=== PATIENT | female | born 1980 | race Hispanic/Latino ===

== ENCOUNTER 2017-02-22 11:28 | Emergency (ER) | payer OTHER, MEDICAID ==
[2017-02-22] MEDS ORDERED: ONDANSETRON HCL 4 MG/2 ML VIAL ONE (12:04)
[2017-02-22] MEDS ORDERED: SODIUM CHLORIDE 0.9% 1000ML 1,000 ML IV ONE (12:04)
[2017-02-22] MEDS ORDERED: ACETAMINOPHEN EXTRA STRENGTH 500 MG TABLET ONE (12:05)
[2017-02-22 12:12] LABS: BASOPHILS % (AUTO) 0.3 % (0.0-5.0); EOSINOPHILS % (AUTO) 1.6 % (0.0-8.0); HEMATOCRIT 34.8 % (36-48); MEAN CORPUSCULAR HEMOGLOBIN 30.8 pg (27.0-33.0); MEAN CORPUSCULAR HGB CONC 33.2 g/dL (32.0-36.0); MEAN CORPUSCULAR VOLUME 92.8 fL (79-99); MONOCYTES % (AUTO) 6.3 % (3.0-13.0); NEUTROPHILS % (AUTO) 82.9 % (40.0-77.0); PLATELET COUNT (AUTO) 228 K/uL (130-400); RED BLOOD CELL COUNT(AUTO) 3.75 MIL/uL (4.00-5.50); RED CELL DISTRIBUTION WIDTH 14.2 % (11.0-15.5); WHITE BLOOD COUNT (AUTO) 10.4 K/uL (4.8-10.8)
[2017-02-22 12:17] LABS: LYMPHOCYTES % (AUTO) 8.9 % (21.0-51.0)
[2017-02-22 12:20] LABS: CREATININE 0.6 mg/dL (0.5-1.5); POTASSIUM 3.5 mmol/L (3.5-5.1)
[2017-02-22 12:26] LABS: ALBUMIN 2.8 g/dL (3.5-5.0); BILIRUBIN,TOTAL 0.4 mg/dL (0.2-1.0); TOTAL PROTEIN, SERUM 7.1 g/dL (6.0-8.3)
[2017-03-10] MEDS ORDERED: LABE200T PO (03:22)
[2017-03-10] MEDS ORDERED: [UNRECOGNIZED DRUG - CODE] PO (03:22)
[2017-03-14] MEDS ORDERED: LABE300T PO (12:01)
[2017-03-14] MEDS ORDERED: [UNRECOGNIZED DRUG - CODE] PO (12:01)
[2017-03-14] MEDS ORDERED: PREN1COM14 PO (12:01)
== END 2017-02-22 14:25 | disposition home or self-care (01) ==
LOC: EDH 11:28
DX: O26.892 Other specified pregnancy related conditions, second trimester (principal); R10.84 Generalized abdominal pain; I10 Essential (primary) hypertension; Z3A.19 19 weeks gestation of pregnancy
CPT/HCPCS: 36415; 76705; 76801; 80053; 82150; 83690; 85025; 96361; 96374; 99285; J2405; J7030; 76802

== ENCOUNTER 2017-04-03 16:16 | Observation (INO) | payer OTHER, MEDICAID ==
[~2017-04-03] VITALS: Ht 147.3 cm; Wt 75.7 kg
[~2017-04-03 16:16] MED LIST: LABE300T PO; PREN1COM14 PO
[2017-04-03 16:48] VITALS: BP 129/78
[2017-04-03] MEDS: DEXAMETHASONE SOD PHOSPHATE 4 MG/ML 1ML VIAL IM SCH ×2 (17:47→22:19)
[2017-04-03 19:10] VITALS: BP 111/61
[2017-04-03] MEDS ORDERED: AMLO5TAB2 PO (21:53)
[2017-04-03] MEDS ORDERED: [UNRECOGNIZED DRUG - CODE] PO (21:54)
[2017-04-03] MEDS ORDERED: METHY500 PO (22:13)
[2017-04-03] MEDS ORDERED: LABE200T PO (22:13)
[2017-04-03] MEDS ORDERED: ACETAMINOPHEN EXTRA STRENGTH 500 MG TABLET PO PRN (22:45)
[2017-04-03 23:10] VITALS: BP 155/88
[2017-04-04 03:23] VITALS: BP 139/75
[2017-04-04] MEDS: DEXAMETHASONE SOD PHOSPHATE 4 MG/ML 1ML VIAL IM SCH ×2 (04:32→10:46)
[2017-04-04 07:38] VITALS: BP 138/79
[2017-04-04] MEDS ORDERED: LABETALOL HCL 300 MG PO SCH (09:00)
[2017-04-04] MEDS ORDERED: AMLODIPINE BESYLATE 5 MG TAB PO SCH ×2 (09:00)
[2017-04-04] MEDS ORDERED: LABETALOL HCL 200 MG TABLET PO SCH (09:00)
== END 2017-04-04 11:30 | disposition home or self-care (01) ==
LOC: WSH 16:30
DX: O60.00 Preterm labor without delivery, unspecified trimester (principal); Z3A.00 Weeks of gestation of pregnancy not specified
CPT/HCPCS: 96372 ×2; G0378 ×20; J1100 ×4

== ENCOUNTER 2017-04-27 02:06 | Observation (INO) | payer OTHER, MEDICAID ==
[~2017-04-27] VITALS: Ht 149.9 cm; Wt 78.9 kg
[~2017-04-27 02:06] MED LIST changes: +AMLO5TAB2 PO; +LABE200T PO; +METHY500 PO; +[UNRECOGNIZED DRUG - CODE] PO
[2017-04-27 02:52] LABS: APPEARANCE,URINE Clear (CLEAR); BILIRUBIN,URINE Negative (NEGATIVE); COLOR,URINE Yellow (YELLOW); GLUCOSE, URINE (UA) Negative (NEGATIVE); KETONES,URINE Negative (NEGATIVE); LEUKOCYTE ESTERASE ,URINE Moderate (NEGATIVE); NITRATE,URINE Negative (NEGATIVE); OCCULT BLOOD,URINE Negative (NEGATIVE); PH,URINE 6.5 (5.0-8.0); PROTEIN,URINE Negative (NEGATIVE)
[2017-04-27 02:58] LABS: BACTERIA,URINE Rare /HPF (None Seen); MUCUS,URINE Moderate LPF (None Seen); RBC,URINE None Seen /HPF (0-1); SQUAMOUS EPITHELIAL CELL,UR Moderate /LPF (0-2)
[2017-04-27] MEDS ORDERED: MAG HYDROX/AL HYDROX/SIMETH ES 30 ML SUSP UDCUP PO SCH (03:45)
== END 2017-04-27 04:35 | disposition home or self-care (01) ==
LOC: EDH 02:06 → LDH 02:10
PROVIDERS: ADMIT Specialist; ATTEND Specialist
DX: O26.892 Other specified pregnancy related conditions, second trimester (principal); R10.10 Upper abdominal pain, unspecified; Z3A.27 27 weeks gestation of pregnancy
CPT/HCPCS: 81001; 99285; G0378 ×2

== ENCOUNTER 2017-05-25 07:51 | Observation (INO) | payer OTHER, MEDICAID ==
[2017-05-25] MEDS: AMPICILLIN 2GM+NS 100ML 100 ML IV SCH ×3 (05:15→23:15)
[2017-05-25 08:23] LABS: BILIRUBIN,URINE Negative (NEGATIVE); COLOR,URINE Yellow (YELLOW); GLUCOSE, URINE (UA) Negative (NEGATIVE); KETONES,URINE Negative (NEGATIVE); LEUKOCYTE ESTERASE ,URINE Large (NEGATIVE); NITRATE,URINE Negative (NEGATIVE); OCCULT BLOOD,URINE Small (NEGATIVE); PROTEIN,URINE POS 1+ (NEGATIVE)
[2017-05-25 08:34] LABS: APPEARANCE,URINE SLIGHTLY CLOUDY (CLEAR)
[2017-05-25 08:52] LABS: BACTERIA,URINE Moderate /HPF (None Seen); MUCUS,URINE Moderate LPF (None Seen); WBC,URINE 51-100 /HPF (0-1)
[2017-05-25] MEDS ORDERED: ACETAMINOPHEN EXTRA STRENGTH 500 MG TABLET PO SCH (09:00)
[2017-05-25] MEDS ORDERED: LACTATED RINGERS 1000ML 1,000 ML IV SCH (09:00)
[2017-05-25] MEDS ORDERED: LACTATED RINGERS 1000ML IV SCH (09:00)
[2017-05-25 09:06] LABS: HEMATOCRIT 37.4 % (36-48); MEAN CORPUSCULAR HEMOGLOBIN 30.2 pg (27.0-33.0); MEAN CORPUSCULAR HGB CONC 33.7 g/dL (32.0-36.0); MEAN CORPUSCULAR VOLUME 89.7 fL (79-99); PLATELET COUNT (AUTO) 244 K/uL (130-400); RED BLOOD CELL COUNT(AUTO) 4.17 MIL/uL (4.00-5.50); RED CELL DISTRIBUTION WIDTH 14.7 % (11.0-15.5); WHITE BLOOD COUNT (AUTO) 19.2 K/uL (4.8-10.8)
[2017-05-25 09:27] LABS: BAND NEUTROPHILS % (MANUAL) 4 % (0-2); LYMPHOCYTES % (MANUAL) 5 % (22-44); MAN.DIFF COMMENT-IMPRESSION MANUAL DIFFERENTIAL; MONOCYTES % (MANUAL) 5 % (2-9); SEGMENTED NEUTROPHILS % 86 % (40-70)
[2017-05-25 09:28] LABS: PLATELET MORPHOLOGY COMMENT ADEQUATE
[2017-05-25] MEDS ORDERED: PHARMACY COMMUNICATION MISC SCH (11:15)
[2017-05-25] MEDS: LACTATED RINGERS 1000ML 1,000 ML IV SCH ×2 (11:30→20:23)
[2017-05-25] MEDS ORDERED: GENTAMICIN SULFATE 240 MG in SODIUM CHLORIDE 0.9% 100 ML IV SCH (13:00)
[2017-05-25] MEDS: GENTAMICIN SULFATE 120 MG in SODIUM CHLORIDE 0.9% 100 ML IV SCH ×2 (13:03→21:03)
[2017-05-25] MEDS ORDERED: ACETAMINOPHEN 325 MG TAB PO PRN (14:00)
[2017-05-25] MEDS: ACETAMINOPHEN EXTRA STRENGTH 500 MG TABLET PO PRN (19:41)
[2017-05-25] MEDS ORDERED: GENTAMICIN 80 MG/NS 100 ML PB 100 ML IV SCH (21:00)
[2017-05-25] MEDS ORDERED: LABETALOL HCL 100 MG TABLET PO SCH (21:00)
[2017-05-25] MEDS ORDERED: LACTATED RINGERS 1000ML 1,000 ML IV ONE (23:23)
[2017-05-26] MEDS: ACETAMINOPHEN EXTRA STRENGTH 500 MG TABLET PO PRN (06:28)
[2017-05-26] MEDS ORDERED: AMLODIPINE BESYLATE 5 MG TAB PO SCH (07:00)
== END 2017-05-26 09:35 | disposition home or self-care (01) ==
LOC: EDH 07:51 → LDH 08:02
DX: O26.893 Other specified pregnancy related conditions, third trimester (principal); R10.30 Lower abdominal pain, unspecified; O10.913 Unspecified pre-existing hypertension complicating pregnancy, third trimester; Z3A.31 31 weeks gestation of pregnancy
CPT/HCPCS: 36415; 81001; 82948 ×2; 85025; 87088; 87186; 87804 ×2; 96361 ×2; 96365; 96368; 96375; 96376; 99285; G0378 ×26; J0290 ×4; J1580 ×2; J7120 ×2; 96360

== ENCOUNTER 2017-06-25 11:36 | Inpatient (IN) | payer MEDICAID, OTHER ==
[~2017-06-25] VITALS: Ht 149.9 cm; Wt 79.4 kg
[~2017-06-25 11:36] MED LIST changes: -LABE200T PO; +LABE200T5 PO; -LABE300T PO; +LABE300T2 PO; +METH500T22 PO; -[UNRECOGNIZED DRUG - CODE] PO
[2017-06-25 13:15] LABS: BASOPHILS % (AUTO) 0.2 % (0.0-5.0); EOSINOPHILS % (AUTO) 0.3 % (0.0-8.0); HEMATOCRIT 36.1 % (36-48); LYMPHOCYTES % (AUTO) 11.6 % (21.0-51.0); MEAN CORPUSCULAR HEMOGLOBIN 29.9 pg (27.0-33.0); MEAN CORPUSCULAR HGB CONC 33.9 g/dL (32.0-36.0); MEAN CORPUSCULAR VOLUME 88.3 fL (79-99); MONOCYTES % (AUTO) 6.6 % (3.0-13.0); NEUTROPHILS % (AUTO) 81.3 % (40.0-77.0); NUCLEATED RED BLOOD CELLS 0.2 % (0.0-0.19); PLATELET COUNT (AUTO) 186 K/uL (130-400); RED BLOOD CELL COUNT(AUTO) 4.09 MIL/uL (4.00-5.50); RED CELL DISTRIBUTION WIDTH 15.2 % (11.0-15.5); WHITE BLOOD COUNT (AUTO) 9.7 K/uL (4.8-10.8)
[2017-06-25 13:17] LABS: APPEARANCE,URINE Cloudy (CLEAR); BILIRUBIN,URINE Negative (NEGATIVE); COLOR,URINE Yellow (YELLOW); GLUCOSE, URINE (UA) Negative (NEGATIVE); KETONES,URINE Trace mg/dL (NEGATIVE); LEUKOCYTE ESTERASE ,URINE Moderate (NEGATIVE); NITRATE,URINE Negative (NEGATIVE); OCCULT BLOOD,URINE Negative (NEGATIVE); PH,URINE 5.5 (5.0-8.0); PROTEIN,URINE POS 1+ (NEGATIVE)
[2017-06-25 13:29] LABS: BACTERIA,URINE Rare /HPF (None Seen); RBC,URINE 0-1 /HPF (0-1); SQUAMOUS EPITHELIAL CELL,UR Rare /HPF (0-2); WBC,URINE 0-1 /HPF (0-1)
[2017-06-25 13:37] LABS: CREATININE 0.7 mg/dL (0.5-1.5)
[2017-06-25 13:41] LABS: ALBUMIN 2.5 g/dL (3.5-5.0); BILIRUBIN,TOTAL 0.3 mg/dL (0.2-1.0); TOTAL PROTEIN, SERUM 6.8 g/dL (6.0-8.3); URIC ACID 6.5 mg/dL (2.6-7.2)
[2017-06-25 13:59] LABS: INR 0.84 (0.85-1.15); PARTIAL THROMBOPLASTIN TIME 25.5 SEC (26.3-35.5); PROTHROMBIN TIME 8.7 SEC (9.6-11.6)
[2017-06-25] MEDS ORDERED: LACTATED RINGERS 1000ML 1,000 ML IV SCH (14:00)
[2017-06-25 14:24] LABS: HEMATOCRIT 36.5 % (36-48); MEAN CORPUSCULAR HEMOGLOBIN 29.8 pg (27.0-33.0); MEAN CORPUSCULAR HGB CONC 34.1 g/dL (32.0-36.0); MEAN CORPUSCULAR VOLUME 87.4 fL (79-99); NUCLEATED RED BLOOD CELLS 0.1 % (0.0-0.19); PLATELET COUNT (AUTO) 155 K/uL (130-400); RED BLOOD CELL COUNT(AUTO) 4.18 MIL/uL (4.00-5.50); RED CELL DISTRIBUTION WIDTH 15.6 % (11.0-15.5); WHITE BLOOD COUNT (AUTO) 11.3 K/uL (4.8-10.8)
[2017-06-25] MEDS: LABETALOL HCL 100 MG TABLET PO SCH ×2 (15:46→20:58)
[2017-06-25] MEDS ORDERED: ACETAMINOPHEN 325 MG TAB ONE (17:05)
[2017-06-25] MEDS ORDERED: ACETAMINOPHEN 325 MG TAB PO PRN (17:15)
[2017-06-26] VITALS (26 sets, daily range): BP systolic 114–170; BP diastolic 65–106
[2017-06-26] MEDS ORDERED: CEFAZOLIN SODIUM 1 GM VIAL IVP PRN ×2 (07:00→07:30)
[2017-06-26] MEDS ORDERED: CALDOLOR 800MG+NS 250ML 250 ML IV PRN (07:00)
[2017-06-26 08:19] LABS: HEPATITIS Bs ANTIGEN SCREEN P Negative (Negative)
[2017-06-26] MEDS ORDERED: ONDANSETRON HCL MDV 20ML 2 MG/ML VIAL ONE (08:44)
[2017-06-26] MEDS ORDERED: DURAMORPH PF1 MG/ML 10ML AMP IV ONE (08:52)
[2017-06-26] MEDS ORDERED: OXYTOCIN 10 USP UNITS/ML ONE ×2 (08:53→12:02)
[2017-06-26] MEDS: LABETALOL HCL 100 MG TABLET PO SCH ×5 (09:00→20:37)
[2017-06-26] MEDS ORDERED: MIDAZOLAM HCL 1 MG/ML 2ML VIAL ONE (09:33)
[2017-06-26] MEDS ORDERED: OXYTOCIN-LR 20 UNITS/1000 ML 1,000 ML IV PRN (10:51)
[2017-06-26] MEDS ORDERED: DIPHENHYDRAMINE HCL 25 MG CAPSULE PO PRN (11:00)
[2017-06-26] MEDS ORDERED: DEXTROSE 5 %-0.45 % NACL 1,000 ML IV PRN (11:00)
[2017-06-26] MEDS ORDERED: SODIUM CHLORIDE 0.9% 10 ML VIAL IVP PRN (11:00)
[2017-06-26] MEDS: MEASLES/MUMPS/RUBELLA VACCINE, LIVE 0.5 ML/VIAL SQ SCH (11:00)
[2017-06-26] MEDS: ACETAMINOPHEN-CODEINE 300/30MG TAB PO PRN ×2 (12:18→18:28)
[2017-06-26 12:22] LABS: HEMATOCRIT 33.9 % (36-48)
[2017-06-26] MEDS ORDERED: MEPERIDINE-PF 25 MG/ML SYG ONE (12:39)
[2017-06-26] MEDS: CALDOLOR 800MG+NS 250ML 250 ML IV SCH (12:56)
[2017-06-26 16:21] LABS: HEMATOCRIT 29.5 % (36-48)
[2017-06-26 16:44] LABS: INR 0.88 (0.85-1.15); PARTIAL THROMBOPLASTIN TIME 27.5 SEC (26.3-35.5); PROTHROMBIN TIME 9.1 SEC (9.6-11.6)
[2017-06-26] MEDS ORDERED: CEFAZOLIN 2GM / 50 ML 50 ML IV SCH (18:00)
[2017-06-26] MEDS: CEFAZOLIN SODIUM 1 GM VIAL IVP SCH (18:28)
[2017-06-26 20:37] LABS: HEMATOCRIT 30.6 % (36-48)
[2017-06-26] MEDS: DOCUSATE SODIUM 100 MG CAP PO SCH (20:37)
[2017-06-26] MEDS: SIMETHICONE 80 MG TAB.CHEW PO PRN (22:50)
[2017-06-26] MEDS ORDERED: LABETALOL HCL 5 MG/ML 20ML VIAL IV ONE (23:08)
[2017-06-26] MEDS: LABETALOL 20 MG/4 ML DISP.SYRIN IV PRN (23:10)
[2017-06-27] VITALS (21 sets, daily range): BP systolic 105–179; BP diastolic 59–115
[2017-06-27] MEDS: CEFAZOLIN SODIUM 1 GM VIAL IVP SCH (02:11)
[2017-06-27] MEDS: CALDOLOR 800MG+NS 250ML 250 ML IV SCH (02:44)
[2017-06-27 03:48] LABS: MEAN CORPUSCULAR HEMOGLOBIN 29.7 pg (27.0-33.0); MEAN CORPUSCULAR VOLUME 87.4 fL (79-99); PLATELET COUNT (AUTO) 133 K/uL (130-400); RED BLOOD CELL COUNT(AUTO) 3.32 MIL/uL (4.00-5.50); RED CELL DISTRIBUTION WIDTH 15.8 % (11.0-15.5); WHITE BLOOD COUNT (AUTO) 14.3 K/uL (4.8-10.8)
[2017-06-27 03:53] LABS: CREATININE 0.6 mg/dL (0.5-1.5); POTASSIUM 3.5 mmol/L (3.5-5.1)
[2017-06-27] MEDS: LABETALOL 20 MG/4 ML DISP.SYRIN IV PRN (05:07)
[2017-06-27] MEDS ORDERED: HYDRALAZINE HCL 20 MG/ML VIAL IV PRN (07:30)
[2017-06-27] MEDS: DOCUSATE SODIUM 100 MG CAP PO SCH ×2 (08:00→21:24)
[2017-06-27] MEDS: AMLODIPINE BESYLATE 5 MG TAB PO SCH (08:01)
[2017-06-27] MEDS ORDERED: AMLODIPINE BESYLATE 5 MG TAB PO SCH (09:00)
[2017-06-27] MEDS ORDERED: ONDANSETRON HCL MDV 20ML 2 MG/ML VIAL ONE (09:17)
[2017-06-27] MEDS: LIDOCAINE 5% TOPICAL PATCH TP SCH (09:19)
[2017-06-27] MEDS: PRENATAL VITAMIN RX TABLET PO SCH (09:19)
[2017-06-27] MEDS: LABETALOL HCL 100 MG TABLET PO SCH ×3 (09:19→16:30)
[2017-06-27] MEDS ORDERED: ONDANSETRON HCL MDV 20ML 2 MG/ML VIAL IVP PRN (09:30)
[2017-06-27] MEDS: SIMETHICONE 80 MG TAB.CHEW PO PRN ×2 (10:07→19:11)
[2017-06-27] MEDS: BISACODYL 10 MG SUPP.RECT RC PRN (10:45)
[2017-06-27] MEDS: IBUPROFEN 800 MG TAB PO SCH ×2 (10:46→19:12)
[2017-06-27] MEDS: HYDRALAZINE HCL 25 MG TABLET PO SCH (16:30)
[2017-06-27] MEDS: ACETAMINOPHEN-CODEINE 300/30MG TAB PO PRN ×2 (16:50→21:28)
[2017-06-27] MEDS: DIPH,PERTUSS(ACELL),TET VAC/PF 0.5 ML VIAL IM SCH (19:12)
[2017-06-27 20:22] LABS: HEMATOCRIT 26.8 % (36-48); MEAN CORPUSCULAR HEMOGLOBIN 29.3 pg (27.0-33.0); MEAN CORPUSCULAR HGB CONC 33.4 g/dL (32.0-36.0); MEAN CORPUSCULAR VOLUME 87.7 fL (79-99); PLATELET COUNT (AUTO) 143 K/uL (130-400); RED BLOOD CELL COUNT(AUTO) 3.05 MIL/uL (4.00-5.50); RED CELL DISTRIBUTION WIDTH 15.6 % (11.0-15.5); WHITE BLOOD COUNT (AUTO) 16.4 K/uL (4.8-10.8)
[2017-06-27 20:47] LABS: INR 0.85 (0.85-1.15); PARTIAL THROMBOPLASTIN TIME 31.7 SEC (26.3-35.5)
[2017-06-28] VITALS (8 sets, daily range): BP systolic 124–167; BP diastolic 71–93
[2017-06-28] MEDS: LABETALOL HCL 100 MG TABLET PO SCH ×4 (00:13→21:45)
[2017-06-28] MEDS: SIMETHICONE 80 MG TAB.CHEW PO PRN ×2 (00:13→21:46)
[2017-06-28] MEDS: HYDRALAZINE HCL 25 MG TABLET PO SCH (02:58)
[2017-06-28] MEDS: IBUPROFEN 800 MG TAB PO SCH ×3 (02:59→18:59)
[2017-06-28 04:24] LABS: HEMATOCRIT 25.2 % (36-48); MEAN CORPUSCULAR HGB CONC 35.4 g/dL (32.0-36.0); MEAN CORPUSCULAR VOLUME 87.8 fL (79-99); PLATELET COUNT (AUTO) 148 K/uL (130-400); RED BLOOD CELL COUNT(AUTO) 2.87 MIL/uL (4.00-5.50); RED CELL DISTRIBUTION WIDTH 16.1 % (11.0-15.5); WHITE BLOOD COUNT (AUTO) 14.6 K/uL (4.8-10.8)
[2017-06-28 04:30] LABS: CREATININE 0.6 mg/dL (0.5-1.5); POTASSIUM 3.3 mmol/L (3.5-5.1)
[2017-06-28] MEDS ORDERED: LIDOCAINE HCL-MPF 1% 2ML VIAL IVP PRN (08:15)
[2017-06-28] MEDS ORDERED: POTASSIUM CHLORIDE 10% ELIXIR 20 MEQ/15 ML UDCUP PO PRN (08:15)
[2017-06-28] MEDS ORDERED: POTASSIUM CHLORIDE 20MEQ/100ML 100 ML IV PRN (08:15)
[2017-06-28] MEDS: LIDOCAINE 5% TOPICAL PATCH TP SCH ×2 (09:00→22:11)
[2017-06-28] MEDS: DOCUSATE SODIUM 100 MG CAP PO SCH ×2 (09:13→20:58)
[2017-06-28] MEDS: POTASSIUM CHLORIDE 20 MEQ ERTAB PO PRN ×3 (09:13→13:12)
[2017-06-28] MEDS: PRENATAL VITAMIN RX TABLET PO SCH (09:13)
[2017-06-28] MEDS: AMLODIPINE BESYLATE 5 MG TAB PO SCH (09:15)
[2017-06-28] MEDS: MEASLES/MUMPS/RUBELLA VACCINE, LIVE 0.5 ML/VIAL SQ SCH (11:00)
[2017-06-28] MEDS ORDERED: HONEY 1 APPL/ML TUBE TP SCH (13:00)
[2017-06-28] MEDS ORDERED: HYDRALAZINE HCL 25 MG TABLET PO PRN (13:45)
[2017-06-28] MEDS: ACETAMINOPHEN-CODEINE 300/30MG TAB PO PRN ×2 (14:38→23:05)
[2017-06-28] MEDS: DIPH,PERTUSS(ACELL),TET VAC/PF 0.5 ML VIAL IM SCH (17:30)
[2017-06-28] MEDS: BISACODYL 10 MG SUPP.RECT RC PRN (22:53)
[2017-06-29] VITALS (8 sets, daily range): BP systolic 133–152; BP diastolic 79–97
[2017-06-29] MEDS: IBUPROFEN 800 MG TAB PO SCH ×3 (03:20→18:43)
[2017-06-29 05:02] LABS: HEMATOCRIT 27.9 % (36-48); MEAN CORPUSCULAR VOLUME 90.9 fL (79-99); PLATELET COUNT (AUTO) 179 K/uL (130-400); RED BLOOD CELL COUNT(AUTO) 3.07 MIL/uL (4.00-5.50); RED CELL DISTRIBUTION WIDTH 15.9 % (11.0-15.5); WHITE BLOOD COUNT (AUTO) 14.1 K/uL (4.8-10.8)
[2017-06-29 05:13] LABS: CREATININE 0.6 mg/dL (0.5-1.5)
[2017-06-29] MEDS: PRENATAL VITAMIN RX TABLET PO SCH (08:33)
[2017-06-29] MEDS: DOCUSATE SODIUM 100 MG CAP PO SCH ×2 (08:33→21:25)
[2017-06-29] MEDS: LABETALOL HCL 100 MG TABLET PO SCH ×3 (08:34→21:25)
[2017-06-29] MEDS: SIMETHICONE 80 MG TAB.CHEW PO PRN ×4 (08:34→21:23)
[2017-06-29] MEDS: AMLODIPINE BESYLATE 5 MG TAB PO SCH (08:40)
[2017-06-29] MEDS: ACETAMINOPHEN-CODEINE 300/30MG TAB PO PRN ×2 (09:48→22:36)
[2017-06-29] MEDS: MEASLES/MUMPS/RUBELLA VACCINE, LIVE 0.5 ML/VIAL SQ SCH (11:00)
[2017-06-29] MEDS: HYDRALAZINE HCL 10 MG TABLET PO SCH ×2 (13:30→21:26)
[2017-06-29] MEDS ORDERED: MEPERIDINE HCL/PF 25 MG/0.5 ML AMPUL IVP PRN (19:00)
[2017-06-29] MEDS ORDERED: MEPERIDINE-PF 25 MG/ML SYG IVP PRN (19:00)
[2017-06-29] MEDS: DIPH,PERTUSS(ACELL),TET VAC/PF 0.5 ML VIAL IM SCH (21:32)
[2017-06-30] VITALS (8 sets, daily range): BP systolic 102–172; BP diastolic 58–98
[2017-06-30] MEDS: IBUPROFEN 800 MG TAB PO SCH ×2 (03:35→18:46)
[2017-06-30] MEDS: DOCUSATE SODIUM 100 MG CAP PO SCH ×2 (08:40→20:53)
[2017-06-30] MEDS: PRENATAL VITAMIN RX TABLET PO SCH (08:40)
[2017-06-30] MEDS: AMLODIPINE BESYLATE 5 MG TAB PO SCH (08:41)
[2017-06-30] MEDS: LABETALOL HCL 100 MG TABLET PO SCH ×3 (08:42→20:54)
[2017-06-30] MEDS: HYDRALAZINE HCL 10 MG TABLET PO SCH ×3 (09:00→20:52)
[2017-06-30] MEDS: LIDOCAINE 5% TOPICAL PATCH TP SCH (09:00)
[2017-06-30] MEDS: MEASLES/MUMPS/RUBELLA VACCINE, LIVE 0.5 ML/VIAL SQ SCH (11:00)
[2017-06-30] MEDS ORDERED: HYDR-4153 PO (11:38)
[2017-06-30] MEDS ORDERED: AMLO10TA4 PO (11:38)
[2017-06-30] MEDS: ACETAMINOPHEN-CODEINE 300/30MG TAB PO PRN ×2 (13:48→20:52)
[2017-06-30] MEDS: SIMETHICONE 80 MG TAB.CHEW PO PRN (20:53)
[2017-07-01] MEDS: IBUPROFEN 800 MG TAB PO SCH ×2 (02:59→10:44)
[2017-07-01 03:08] VITALS: BP 147/82
[2017-07-01 07:30] VITALS: BP 167/102
[2017-07-01] MEDS: LABETALOL HCL 100 MG TABLET PO SCH (08:47)
[2017-07-01] MEDS: PRENATAL VITAMIN RX TABLET PO SCH (08:47)
[2017-07-01] MEDS: AMLODIPINE BESYLATE 5 MG TAB PO SCH (08:48)
[2017-07-01] MEDS: HYDRALAZINE HCL 10 MG TABLET PO SCH (08:48)
[2017-07-01] MEDS: DOCUSATE SODIUM 100 MG CAP PO SCH (08:48)
[2017-07-01] MEDS: LIDOCAINE 5% TOPICAL PATCH TP SCH (08:59)
[2017-07-01 11:59] VITALS: BP 146/86
== END 2017-07-01 13:35 | disposition home health service (06) | DRG 540 ==
LOC: OBSVTOIN 11:36 → LDH 11:36 → 2BH 06-26 11:54 → WSH 06-27 10:25
PROC: 3E0134Z Introduction of Serum, Toxoid and Vaccine into Subcutaneous Tissue, Percutaneous Approach (ICD-10-PCS; 2017-06-25)
PROC: 3E0234Z Introduction of Serum, Toxoid and Vaccine into Muscle, Percutaneous Approach (ICD-10-PCS; 2017-06-26)
PROC: 30233N1 Transfusion of Nonautologous Red Blood Cells into Peripheral Vein, Percutaneous Approach (ICD-10-PCS; 2017-06-26)
PROC: 10D00Z1 Extraction of Products of Conception, Low, Open Approach (ICD-10-PCS; principal; 2017-06-26 08:00)
PROC: 0UB90ZZ Excision of Uterus, Open Approach (ICD-10-PCS; 2017-06-26 08:00)
DX: O77.9 Labor and delivery complicated by fetal stress, unspecified (principal); E66.01 Morbid (severe) obesity due to excess calories; T81.30XA Disruption of wound, unspecified, initial encounter; O13.4 Gestational [pregnancy-induced] hypertension without significant proteinuria, complicating childbirth; D25.9 Leiomyoma of uterus, unspecified; O16.4 Unspecified maternal hypertension, complicating childbirth; O34.13 Maternal care for benign tumor of corpus uteri, third trimester; O99.214 Obesity complicating childbirth; O9A.22 Injury, poisoning and certain other consequences of external causes complicating childbirth; O34.211 Maternal care for low transverse scar from previous cesarean delivery; O24.429 Gestational diabetes mellitus in childbirth, unspecified control; J45.909 Unspecified asthma, uncomplicated; O99.52 Diseases of the respiratory system complicating childbirth; O36.5930 Maternal care for other known or suspected poor fetal growth, third trimester, not applicable or unspecified; Z79.899 Other long term (current) drug therapy; Z3A.36 36 weeks gestation of pregnancy; Z37.0 Single live birth; Z68.35 Body mass index [BMI] 35.0-35.9, adult; Z88.8 Allergy status to other drugs, medicaments and biological substances; Z23 Encounter for immunization; Z82.49 Family history of ischemic heart disease and other diseases of the circulatory system; Z83.3 Family history of diabetes mellitus
CPT/HCPCS: 36415; 36430; 59510; 80048; 80053; 81001; 82948; 84550; 85014; 85018; 85025; 85027; 85378; 85384; 85610; 85730; 86592; 86850; 86900; 86901; 86922; 87340; 88305; 90707; 90715; A4218; A4344; A4606; J0360; J0690; J1741; J2175; J2250; J2274; J2590; J3490; J7042; J7120; P9016

== ENCOUNTER → 2017-07-02 | Outpatient (CLI) | payer MEDICAID ==
[~2017-07-02] MED LIST changes: +AMLO10TA4 PO; -AMLO5TAB2 PO; +HYDR-4153 PO
[2017-07-02 15:37] VITALS: BP 125/82
== END | disposition home or self-care (01) ==
LOC: WHH 14:00
PROVIDERS: ATTEND Family Medicine
DX: T81.89XD Other complications of procedures, not elsewhere classified, subsequent encounter (principal); J45.909 Unspecified asthma, uncomplicated; E66.01 Morbid (severe) obesity due to excess calories; Z68.35 Body mass index [BMI] 35.0-35.9, adult; Y83.8 Other surgical procedures as the cause of abnormal reaction of the patient, or of later complication, without mention of misadventure at the time of the procedure
CPT/HCPCS: 97605

== ENCOUNTER → 2017-07-04 | Outpatient (CLI) | payer MEDICAID ==
[2017-07-04 11:05] VITALS: BP 140/98
== END | disposition home or self-care (01) ==
LOC: WHH 10:00
PROVIDERS: ATTEND Family Medicine
DX: T81.89XD Other complications of procedures, not elsewhere classified, subsequent encounter (principal); E66.01 Morbid (severe) obesity due to excess calories; J45.909 Unspecified asthma, uncomplicated; Z68.35 Body mass index [BMI] 35.0-35.9, adult; Y83.8 Other surgical procedures as the cause of abnormal reaction of the patient, or of later complication, without mention of misadventure at the time of the procedure
CPT/HCPCS: 97605

== ENCOUNTER 2017-12-06 10:47 | Emergency (ER) | payer MEDICAID, OTHER ==
[2017-12-06 11:03] LABS: BASOPHILS % (AUTO) 0.4 % (0.0-5.0); EOSINOPHILS % (AUTO) 1.8 % (0.0-8.0); HEMATOCRIT 30.2 % (36-48); LYMPHOCYTES % (AUTO) 12.3 % (21.0-51.0); MEAN CORPUSCULAR HEMOGLOBIN 20.4 pg (27.0-33.0); MEAN CORPUSCULAR HGB CONC 29.5 g/dL (32.0-36.0); MEAN CORPUSCULAR VOLUME 69.2 fL (79-99); MONOCYTES % (AUTO) 10.5 % (3.0-13.0); PLATELET COUNT (AUTO) 269 K/uL (130-400); RED BLOOD CELL COUNT(AUTO) 4.37 MIL/uL (4.00-5.50); RED CELL DISTRIBUTION WIDTH 17.1 % (11.0-15.5); WHITE BLOOD COUNT (AUTO) 7.3 K/uL (4.8-10.8)
[2017-12-06 11:11] LABS: CREATININE 0.7 mg/dL (0.5-1.5); POTASSIUM 3.8 mmol/L (3.5-5.1)
[2017-12-06 11:17] LABS: ALBUMIN 3.3 g/dL (3.5-5.0); BILIRUBIN,TOTAL 0.3 mg/dL (0.2-1.0); TOTAL PROTEIN, SERUM 7.3 g/dL (6.0-8.3)
[2017-12-06] MEDS ORDERED: SODIUM CHLORIDE 0.9% 1000ML 1,000 ML IV ONE (11:23)
[2017-12-06] MEDS ORDERED: ONDANSETRON HCL 4 MG/2 ML VIAL ONE (11:23)
[2017-12-06] MEDS ORDERED: KETOROLAC TROMETHAMINE 30MG/ML ONE (11:24)
[2017-12-06 12:13] LABS: APPEARANCE,URINE Clear (CLEAR); BILIRUBIN,URINE Negative (NEGATIVE); COLOR,URINE Yellow (YELLOW); GLUCOSE, URINE (UA) Negative (NEGATIVE); KETONES,URINE Negative (NEGATIVE); LEUKOCYTE ESTERASE ,URINE Trace (NEGATIVE); NITRATE,URINE Negative (NEGATIVE); OCCULT BLOOD,URINE Negative (NEGATIVE); PH,URINE 6.5 (5.0-8.0); PROTEIN,URINE Negative (NEGATIVE); UROBILINOGEN,URINE 0.2 mg/dL (0.2-1.0)
[2017-12-06 12:29] LABS: BACTERIA,URINE Rare /HPF (None Seen); RBC,URINE 0-1 /HPF (0-1); WBC,URINE 0-1 /HPF (0-1)
== END 2017-12-06 14:06 | disposition home or self-care (01) ==
LOC: EDH 10:47
DX: R10.13 Epigastric pain (principal); I10 Essential (primary) hypertension; Z98.890 Other specified postprocedural states; Z88.8 Allergy status to other drugs, medicaments and biological substances
CPT/HCPCS: 36415; 76700; 80053; 81001; 83690; 84703; 85025; 96374; 96375; 99285; J1885; J2405; J7030

== ENCOUNTER 2018-01-27 19:14 | Emergency (ER) | payer OTHER ==
[2018-01-27] MEDS ORDERED: SODIUM CHLORIDE 0.9% 1000ML 1,000 ML IV ONE (19:46)
[2018-01-27] MEDS ORDERED: ONDANSETRON HCL 4 MG/2 ML VIAL ONE (19:46)
[2018-01-27] MEDS ORDERED: MORPHINE SULFATE 4 MG/1ML SYG ONE (19:46)
[2018-01-27 19:50] LABS: BASOPHILS % (AUTO) 0.6 % (0.0-5.0); EOSINOPHILS % (AUTO) 1.8 % (0.0-8.0); HEMATOCRIT 31.9 % (36-48); LYMPHOCYTES % (AUTO) 10.4 % (21.0-51.0); MEAN CORPUSCULAR HEMOGLOBIN 21.3 pg (27.0-33.0); MEAN CORPUSCULAR HGB CONC 29.8 g/dL (32.0-36.0); MEAN CORPUSCULAR VOLUME 71.5 fL (79-99); MONOCYTES % (AUTO) 6.1 % (3.0-13.0); NEUTROPHILS % (AUTO) 81.1 % (40.0-77.0); PLATELET COUNT (AUTO) 287 K/uL (130-400); RED BLOOD CELL COUNT(AUTO) 4.46 MIL/uL (4.00-5.50); RED CELL DISTRIBUTION WIDTH 18.9 % (11.0-15.5); WHITE BLOOD COUNT (AUTO) 9.5 K/uL (4.8-10.8)
[2018-01-27 19:52] LABS: APPEARANCE,URINE Cloudy (CLEAR); BILIRUBIN,URINE Negative (NEGATIVE); COLOR,URINE Yellow (YELLOW); GLUCOSE, URINE (UA) Negative (NEGATIVE); KETONES,URINE Negative (NEGATIVE); LEUKOCYTE ESTERASE ,URINE Moderate (NEGATIVE); NITRATE,URINE Negative (NEGATIVE); OCCULT BLOOD,URINE Negative (NEGATIVE); PROTEIN,URINE Negative (NEGATIVE)
[2018-01-27 19:59] LABS: CREATININE 0.9 mg/dL (0.5-1.5); POTASSIUM 3.9 mmol/L (3.5-5.1)
[2018-01-27 20:03] LABS: ALBUMIN 3.7 g/dL (3.5-5.0); BILIRUBIN,TOTAL 0.5 mg/dL (0.2-1.0); HCG,QUAL RESULT NEGATIVE (NEGATIVE); TOTAL PROTEIN, SERUM 7.7 g/dL (6.0-8.3)
[2018-01-27] MEDS ORDERED: IOHEXOL-350 75 ML VIAL IV ONE (20:10)
[2018-01-27 20:20] LABS: BACTERIA,URINE Many /HPF (None Seen); RBC,URINE 0-1 /HPF (0-1); SQUAMOUS EPITHELIAL CELL,UR Many /HPF (0-2); TRICHOMONAS,URINE None Seen /LPF (None Seen); YEAST,URINE BUDDING Few /HPF (None Seen)
[2018-01-27 20:21] LABS: MUCUS,URINE None Seen LPF (None Seen)
== END 2018-01-27 21:53 | disposition home or self-care (01) ==
LOC: EDH 19:14
DX: K43.9 Ventral hernia without obstruction or gangrene (principal); N39.0 Urinary tract infection, site not specified; I10 Essential (primary) hypertension; Z98.890 Other specified postprocedural states; Z88.8 Allergy status to other drugs, medicaments and biological substances
CPT/HCPCS: 36415; 74177; 80053; 81001; 81025; 83690; 85025; 96374; 96375; 99285; J2270; J2405; J7030; Q9967

== ENCOUNTER 2018-02-15 03:22 | Emergency (ER) | payer OTHER ==
[2018-02-15] MEDS ORDERED: KETOROLAC TROMETHAMINE 30MG/ML ONE (04:05)
[2018-02-15 04:08] LABS: APPEARANCE,URINE Cloudy (CLEAR); BILIRUBIN,URINE Negative (NEGATIVE); COLOR,URINE Orange (YELLOW); GLUCOSE, URINE (UA) Negative (NEGATIVE); KETONES,URINE Trace mg/dL (NEGATIVE); LEUKOCYTE ESTERASE ,URINE Moderate (NEGATIVE); NITRATE,URINE Negative (NEGATIVE); OCCULT BLOOD,URINE Large (NEGATIVE); PH,URINE 5.5 (5.0-8.0); PROTEIN,URINE POS 1+ (NEGATIVE)
[2018-02-15 04:19] LABS: BACTERIA,URINE None Seen /HPF (None Seen); MUCUS,URINE None Seen LPF (None Seen); RBC,URINE TNTC /HPF (0-1); SQUAMOUS EPITHELIAL CELL,UR None Seen /HPF (0-2)
[2018-02-15 04:23] LABS: BASOPHILS % (AUTO) 0.6 % (0.0-5.0); EOSINOPHILS % (AUTO) 1.8 % (0.0-8.0); HEMATOCRIT 30.2 % (36-48); LYMPHOCYTES % (AUTO) 5.3 % (21.0-51.0); MEAN CORPUSCULAR HGB CONC 30.3 g/dL (32.0-36.0); MEAN CORPUSCULAR VOLUME 72.7 fL (79-99); MONOCYTES % (AUTO) 5.1 % (3.0-13.0); NEUTROPHILS % (AUTO) 87.2 % (40.0-77.0); PLATELET COUNT (AUTO) 231 K/uL (130-400); RED BLOOD CELL COUNT(AUTO) 4.16 MIL/uL (4.00-5.50); RED CELL DISTRIBUTION WIDTH 20.9 % (11.0-15.5); WHITE BLOOD COUNT (AUTO) 7.1 K/uL (4.8-10.8)
[2018-02-15 04:30] LABS: CREATININE 0.9 mg/dL (0.5-1.5); POTASSIUM 3.8 mmol/L (3.5-5.1)
[2018-02-15 04:34] LABS: ALBUMIN 3.1 g/dL (3.5-5.0); BILIRUBIN,TOTAL 0.3 mg/dL (0.2-1.0); TOTAL PROTEIN, SERUM 6.8 g/dL (6.0-8.3)
== END 2018-02-15 05:27 | disposition home or self-care (01) ==
LOC: EDH 03:22
DX: K43.2 Incisional hernia without obstruction or gangrene (principal)
CPT/HCPCS: 36415; 80053; 81001; 81025; 85025; 96374; 99283; J1885

== ENCOUNTER 2018-03-14 07:57 | Inpatient (IN) | payer OTHER ==
[~2018-03-14] VITALS: Ht 149.9 cm; Wt 81.2 kg
[2018-03-14 08:46] LABS: BASOPHILS % (AUTO) 0.4 % (0.0-5.0); EOSINOPHILS % (AUTO) 1.1 % (0.0-8.0); HEMATOCRIT 34.5 % (36-48); LYMPHOCYTES % (AUTO) 3.6 % (21.0-51.0); MEAN CORPUSCULAR HEMOGLOBIN 21.4 pg (27.0-33.0); MEAN CORPUSCULAR HGB CONC 30.1 g/dL (32.0-36.0); MONOCYTES % (AUTO) 7.2 % (3.0-13.0); NEUTROPHILS % (AUTO) 87.7 % (40.0-77.0); PLATELET COUNT (AUTO) 223 K/uL (130-400); RED BLOOD CELL COUNT(AUTO) 4.86 MIL/uL (4.00-5.50); RED CELL DISTRIBUTION WIDTH 18.2 % (11.0-15.5); WHITE BLOOD COUNT (AUTO) 8.4 K/uL (4.8-10.8)
[2018-03-14] MEDS ORDERED: ONDANSETRON HCL 4 MG/2 ML VIAL ONE (08:47)
[2018-03-14 09:24] LABS: CREATININE 0.8 mg/dL (0.5-1.5); POTASSIUM 3.6 mmol/L (3.5-5.1)
[2018-03-14 09:28] LABS: ALBUMIN 3.4 g/dL (3.5-5.0); BILIRUBIN,TOTAL 0.4 mg/dL (0.2-1.0); TOTAL PROTEIN, SERUM 7.6 g/dL (6.0-8.3)
[2018-03-14 09:29] LABS: APPEARANCE,URINE Cloudy (CLEAR); BILIRUBIN,URINE Negative (NEGATIVE); COLOR,URINE Yellow (YELLOW); GLUCOSE, URINE (UA) Negative (NEGATIVE); KETONES,URINE Negative (NEGATIVE); LEUKOCYTE ESTERASE ,URINE Moderate (NEGATIVE); NITRATE,URINE Negative (NEGATIVE); OCCULT BLOOD,URINE Negative (NEGATIVE); PH,URINE 6.5 (5.0-8.0); PROTEIN,URINE Trace (NEGATIVE); UROBILINOGEN,URINE 0.2 mg/dL (0.2-1.0)
[2018-03-14 09:30] LABS: HCG,QUAL RESULT NEGATIVE (NEGATIVE)
[2018-03-14] MEDS ORDERED: KETOROLAC TROMETHAMINE 15MG/ML ONE (09:42)
[2018-03-14 10:22] LABS: BACTERIA,URINE Moderate /HPF (None Seen); SQUAMOUS EPITHELIAL CELL,UR 50-100 /HPF (0-2)
[2018-03-14 10:24] LABS: RBC,URINE None Seen /HPF (0-1); YEAST,URINE BUDDING Few /HPF (None Seen)
[2018-03-14] MEDS ORDERED: HYDROMORPHONE 1 MG/1 ML AMP IV PRN (11:30)
[2018-03-14] MEDS: SODIUM CHLORIDE 0.9% 1000ML 1,000 ML IV SCH ×2 (11:30→22:29)
[2018-03-14] MEDS ORDERED: HYDROMORPHONE 1 MG/1 ML AMP ONE (11:41)
[2018-03-14] MEDS ORDERED: SODIUM CHLORIDE 0.9% 1000ML 2,000 ML IV ONE (11:43)
[2018-03-14] MEDS: LEVOFLOXACIN 500 MG/D5W 100 ML 100 ML IV SCH (11:45)
[2018-03-14] MEDS: ONDANSETRON HCL 4 MG/2 ML VIAL IV PRN (14:08)
[2018-03-14 14:21] VITALS: BP 153/88
[2018-03-14] MEDS: KETOROLAC TROMETHAMINE 15MG/ML IV PRN (15:51)
[2018-03-14] MEDS ORDERED: PROMETHAZINE HCL 25 MG/ML 1ML AMPULE IM SCH (16:15)
[2018-03-14 16:23] VITALS: BP 167/98
[2018-03-14 17:17] VITALS: BP 149/81
[2018-03-14 20:00] VITALS: BP 137/72
[2018-03-15] VITALS: BP 140/90
[2018-03-15 04:00] VITALS: BP 156/96
[2018-03-15 04:33] LABS: BASOPHILS % (AUTO) 0.3 % (0.0-5.0); EOSINOPHILS % (AUTO) 2.1 % (0.0-8.0); HEMATOCRIT 30.1 % (36-48); LYMPHOCYTES % (AUTO) 16.2 % (21.0-51.0); MEAN CORPUSCULAR HEMOGLOBIN 21.1 pg (27.0-33.0); MEAN CORPUSCULAR HGB CONC 29.6 g/dL (32.0-36.0); MEAN CORPUSCULAR VOLUME 71.3 fL (79-99); MONOCYTES % (AUTO) 11.6 % (3.0-13.0); NEUTROPHILS % (AUTO) 69.8 % (40.0-77.0); NUCLEATED RED BLOOD CELLS 0.1 % (0.0-0.19); PLATELET COUNT (AUTO) 194 K/uL (130-400); RED BLOOD CELL COUNT(AUTO) 4.22 MIL/uL (4.00-5.50); RED CELL DISTRIBUTION WIDTH 18.3 % (11.0-15.5); WHITE BLOOD COUNT (AUTO) 4.3 K/uL (4.8-10.8)
[2018-03-15 04:48] LABS: CREATININE 0.7 mg/dL (0.5-1.5); POTASSIUM 3.6 mmol/L (3.5-5.1)
[2018-03-15] MEDS ORDERED: ACETAMINOPHEN-CODEINE 300/30MG TAB PO PRN (07:00)
[2018-03-15] MEDS: SODIUM CHLORIDE 0.9% 1000ML 1,000 ML IV SCH (08:00)
[2018-03-15] MEDS: ONDANSETRON HCL 4 MG/2 ML VIAL IV PRN (08:01)
[2018-03-15] MEDS: LABETALOL HCL 100 MG TABLET PO SCH ×2 (08:01→16:13)
[2018-03-15] MEDS: KETOROLAC TROMETHAMINE 15MG/ML IV PRN (08:02)
[2018-03-15 08:29] VITALS: BP 150/88
[2018-03-15] MEDS ORDERED: PANTOPRAZOLE 40 MG/VIAL IVP SCH (09:00)
[2018-03-15] MEDS ORDERED: ENOXAPARIN SODIUM 40 MG/0.4 ML SYRINGE SQ SCH (09:00)
[2018-03-15] MEDS ORDERED: PANTOPRAZOLE SODIUM 40 MG TABLET.DR PO SCH (09:13)
[2018-03-15] MEDS: LEVOFLOXACIN 500 MG/D5W 100 ML 100 ML IV SCH (11:07)
[2018-03-15] MEDS ORDERED: LEVO500T2 PO (11:34)
[2018-03-15] MEDS ORDERED: TRAM50TA2 PO (11:34)
[2018-03-15 11:36] VITALS: BP 141/91
[2018-03-15 16:09] VITALS: BP 155/107
== END 2018-03-15 18:13 | disposition home or self-care (01) | DRG 392 ==
LOC: EDH 07:57 → EDHIP 10:45 → 4CH 13:50
PROVIDERS: ADMIT Internal Medicine; ATTEND Internal Medicine
DX: R11.2 Nausea with vomiting, unspecified (principal); N39.0 Urinary tract infection, site not specified; R07.9 Chest pain, unspecified; I10 Essential (primary) hypertension; D24.9 Benign neoplasm of unspecified breast; D25.9 Leiomyoma of uterus, unspecified; K43.9 Ventral hernia without obstruction or gangrene; Z90.710 Acquired absence of both cervix and uterus; Z83.3 Family history of diabetes mellitus; Z82.5 Family history of asthma and other chronic lower respiratory diseases; Z82.49 Family history of ischemic heart disease and other diseases of the circulatory system; Z82.3 Family history of stroke; Z82.0 Family history of epilepsy and other diseases of the nervous system; Z80.8 Family history of malignant neoplasm of other organs or systems; Z88.8 Allergy status to other drugs, medicaments and biological substances
CPT/HCPCS: 36415; 71045; 74177; 80048; 80053; 81001; 81025; 83690; 84484; 85025; 87088; 93005; C9113; G0378; J1170; J1650; J1885; J1956; J2405; J2550; J7030

== ENCOUNTER 2018-04-02 07:58 | Inpatient (IN) | payer OTHER | END 2018-04-04 11:45 | disposition home or self-care (01) | LOC: DAHIP 07:58 → WSH 14:40 | PROC: 0UT90ZZ Resection of Uterus, Open Approach (ICD-10-PCS; principal; 2018-04-02 09:41) | PROC: 0WQF0ZZ Repair Abdominal Wall, Open Approach (ICD-10-PCS; 2018-04-02 09:41) | DX: D25.9 Leiomyoma of uterus, unspecified (principal); D50.0 Iron deficiency anemia secondary to blood loss (chronic); N92.0 Excessive and frequent menstruation with regular cycle; K42.9 Umbilical hernia without obstruction or gangrene; N73.6 Female pelvic peritoneal adhesions (postinfective); K43.2 Incisional hernia without obstruction or gangrene ==

== ENCOUNTER → 2018-10-07 | Outpatient (CLI) | payer OTHER ==
[~2018-10-07] MED LIST changes: -AMLO10TA4 PO; -HYDR-4153 PO; -LABE200T5 PO; -METH500T22 PO; -METHY500 PO; -PREN1COM14 PO; +PROVERA PO
[2018-10-07 12:47] LABS: APPEARANCE,URINE Cloudy (CLEAR); BILIRUBIN,URINE Negative (NEGATIVE); COLOR,URINE Yellow (YELLOW); GLUCOSE, URINE (UA) Negative (NEGATIVE); KETONES,URINE Negative (NEGATIVE); LEUKOCYTE ESTERASE ,URINE Negative (NEGATIVE); NITRATE,URINE Negative (NEGATIVE); OCCULT BLOOD,URINE Negative (NEGATIVE); PROTEIN,URINE Negative (NEGATIVE); UROBILINOGEN,URINE 0.2 mg/dL (0.2-1.0)
[2018-10-07 13:28] LABS: BACTERIA,URINE Few /HPF (None Seen); RBC,URINE None Seen /HPF (0-1); SQUAMOUS EPITHELIAL CELL,UR Moderate /HPF (0-2); WBC,URINE 0-1 /HPF (0-1)
== END | disposition home or self-care (01) ==
LOC: RAH 11:41
DX: N83.201 Unspecified ovarian cyst, right side (principal); Z90.710 Acquired absence of both cervix and uterus
CPT/HCPCS: 76856; 81001

== ENCOUNTER → 2018-11-09 | Outpatient (CLI) | payer OTHER | END | disposition home or self-care (01) | LOC: RAH 09:54 | PROVIDERS: ATTEND Internal Medicine | DX: Z12.31 Encounter for screening mammogram for malignant neoplasm of breast (principal) | CPT/HCPCS: 77067; 82043 ==

== ENCOUNTER → 2018-12-17 | Outpatient (CLI) | payer OTHER | END | disposition home or self-care (01) | LOC: RAH 15:10 | PROVIDERS: ATTEND Internal Medicine | DX: R05 Cough (principal) | CPT/HCPCS: 71047 ==

== ENCOUNTER 2019-02-05 05:38 | Day surgery (SDC) | payer OTHER ==
[2019-02-05] VITALS (7 sets, daily range): BP systolic 99–140; BP diastolic 55–86
[~2019-02-05] VITALS: Ht 149.9 cm; Wt 83.0 kg
[2019-02-05] MEDS ORDERED: SODIUM CHLORIDE 0.9% 1000ML 1,000 ML IV ONE (05:44)
[2019-02-05] MEDS ORDERED: FLUT9.9S16 NS (06:40)
[2019-02-05] MEDS ORDERED: LORA10TA7 PO (06:40)
[2019-02-05] MEDS ORDERED: PANT40TA PO (06:40)
[2019-02-05] MEDS ORDERED: MONT10TA24 PO (06:40)
[2019-02-05] MEDS ORDERED: NEBI10TA PO (06:40)
[2019-02-05] MEDS ORDERED: AMLO-97 PO (06:40)
[2019-02-05] MEDS ORDERED: FLUT1BLS IH (06:40)
--- NOTE | 2019-02-05 08:05 | NUR ---
CHEST TIGHTNESS PT COMPLAINED OF CHEST TIGHTNESS UPON ARRIVAL TO UNIT, SCALE OF 5. PT COUGHING, NON PRODUCTIVE (COUGH STARTED 3 MOS AGO. KIRILL COOK NOTIFIED. KIRILL GARNER CAME TO ASSESS PT. STATED WILL OBSERVE PT. KIRILL COOK CAME TO SEE PT, ORDERED EKG. EKG DONE, RESULT STATES NORMAL EKG. AT THIS TIME, PT STATES CHEST TIGHTNESS IS LESS. EKG RESULT REPORTED TO JOEY ROY.
== END 2019-02-05 08:27 | disposition home or self-care (01) ==
LOC: ENDO 05:38 → DAH 05:38 → ENDO 08:27
PROVIDERS: ATTEND Internal Medicine
DX: R12 Heartburn (principal); K31.89 Other diseases of stomach and duodenum; K22.8 Other specified diseases of esophagus; J45.909 Unspecified asthma, uncomplicated; I10 Essential (primary) hypertension; E66.01 Morbid (severe) obesity due to excess calories; K21.9 Gastro-esophageal reflux disease without esophagitis; F41.9 Anxiety disorder, unspecified; Z79.899 Other long term (current) drug therapy; Z88.8 Allergy status to other drugs, medicaments and biological substances
CPT/HCPCS: 43239; 93005; A4215; A4221; A4222; A4223; A4606; A4615; A4663; J7030

== ENCOUNTER → 2019-05-04 | Outpatient (CLI) | payer OTHER ==
[~2019-05-04] MED LIST changes: +AMLO-97 PO; +FLUT1BLS IH; +FLUT9.9S16 NS; -LABE300T2 PO; +LORA10TA7 PO; +MONT10TA26 PO; +NEBI10TA PO; +PANT40TA PO; -PROVERA PO
[2019-05-04 08:38] LABS: BASOPHILS % (AUTO) 0.4 % (0.0-5.0); HEMATOCRIT 42.5 % (36-48); LYMPHOCYTES % (AUTO) 18.4 % (21.0-51.0); MEAN CORPUSCULAR HEMOGLOBIN 27.6 pg (27.0-33.0); MEAN CORPUSCULAR HGB CONC 31.1 g/dL (32.0-36.0); MEAN CORPUSCULAR VOLUME 88.9 fL (79-99); MONOCYTES % (AUTO) 7.5 % (3.0-13.0); NEUTROPHILS % (AUTO) 71.4 % (40.0-77.0); PLATELET COUNT (AUTO) 281 K/uL (130-400); RED BLOOD CELL COUNT(AUTO) 4.78 MIL/uL (4.00-5.50); RED CELL DISTRIBUTION WIDTH 12.6 % (11.0-15.5); WHITE BLOOD COUNT (AUTO) 7.8 K/uL (4.8-10.8)
[2019-05-04 09:06] LABS: ALBUMIN 3.6 g/dL (3.5-5.0); BILIRUBIN,TOTAL 0.4 mg/dL (0.2-1.0); CREATININE 0.7 mg/dL (0.5-1.5); POTASSIUM 3.9 mmol/L (3.5-5.1); THYROID STIMULATING HORMONE 2.35 uIU/mL (0.36-3.74); TOTAL PROTEIN, SERUM 7.7 g/dL (6.0-8.3)
== END | disposition home or self-care (01) ==
LOC: LAB 07:38
PROVIDERS: ATTEND Internal Medicine
DX: R73.01 Impaired fasting glucose (principal); E03.9 Hypothyroidism, unspecified; I10 Essential (primary) hypertension
CPT/HCPCS: 36415; 80053; 80061; 83036; 84443; 85025

== ENCOUNTER → 2019-07-29 | Outpatient (CLI) | payer OTHER | END | disposition home or self-care (01) | LOC: RAH 10:21 | DX: N83.9 Noninflammatory disorder of ovary, fallopian tube and broad ligament, unspecified (principal); R10.2 Pelvic and perineal pain | CPT/HCPCS: 76856 ==

== ENCOUNTER → 2019-10-15 | Outpatient (CLI) | payer OTHER ==
[2019-10-15 10:53] LABS: BASOPHILS % (AUTO) 0.3 % (0.0-5.0); EOSINOPHILS % (AUTO) 2.6 % (0.0-8.0); HEMATOCRIT 45.4 % (36-48); LYMPHOCYTES % (AUTO) 16.8 % (21.0-51.0); MEAN CORPUSCULAR HEMOGLOBIN 27.4 pg (27.0-33.0); MEAN CORPUSCULAR HGB CONC 30.4 g/dL (32.0-36.0); MEAN CORPUSCULAR VOLUME 90.1 fL (79-99); MONOCYTES % (AUTO) 6.8 % (3.0-13.0); NEUTROPHILS % (AUTO) 73.2 % (40.0-77.0); PLATELET COUNT (AUTO) 235 K/uL (130-400); RED BLOOD CELL COUNT(AUTO) 5.04 MIL/uL (4.00-5.50); RED CELL DISTRIBUTION WIDTH 12.9 % (11.0-15.5); WHITE BLOOD COUNT (AUTO) 7.3 K/uL (4.8-10.8)
[2019-10-15 11:09] LABS: HEMOGLOBIN A1C 6.2 % (4.0-6.0)
[2019-10-15 11:22] LABS: ALBUMIN 3.5 g/dL (3.5-5.0); BILIRUBIN,TOTAL 0.3 mg/dL (0.2-1.0); CREATININE 0.8 mg/dL (0.5-1.5); POTASSIUM 3.9 mmol/L (3.5-5.1); THYROID STIMULATING HORMONE 1.93 uIU/mL (0.36-3.74); TOTAL PROTEIN, SERUM 7.6 g/dL (6.0-8.3)
== END | disposition home or self-care (01) ==
LOC: LAB 10:31
PROVIDERS: ATTEND Internal Medicine
DX: R73.01 Impaired fasting glucose (principal); E03.9 Hypothyroidism, unspecified; I10 Essential (primary) hypertension
CPT/HCPCS: 36415; 80053; 80061; 83036; 84443; 85025

== ENCOUNTER → 2019-11-19 | Outpatient (CLI) | payer OTHER ==
[2019-11-19 15:26] LABS: APPEARANCE,URINE Clear (CLEAR); BILIRUBIN,URINE Negative (NEGATIVE); COLOR,URINE Yellow (YELLOW); GLUCOSE, URINE (UA) Negative (NEGATIVE); KETONES,URINE Negative (NEGATIVE); LEUKOCYTE ESTERASE ,URINE Negative (NEGATIVE); NITRATE,URINE Negative (NEGATIVE); OCCULT BLOOD,URINE Negative (NEGATIVE); PROTEIN,URINE Negative (NEGATIVE)
[2019-11-19 15:42] LABS: ALBUMIN 3.6 g/dL (3.5-5.0); BILIRUBIN,TOTAL 0.3 mg/dL (0.2-1.0); CREATININE 0.7 mg/dL (0.5-1.5); POTASSIUM 3.5 mmol/L (3.5-5.1); TOTAL PROTEIN, SERUM 8.1 g/dL (6.0-8.3)
== END | disposition home or self-care (01) ==
LOC: RAH 14:33
PROVIDERS: ATTEND Internal Medicine
DX: Z12.31 Encounter for screening mammogram for malignant neoplasm of breast (principal); R10.9 Unspecified abdominal pain
CPT/HCPCS: 36415; 77067; 80053; 81003; 87088

== ENCOUNTER → 2019-11-23 | Outpatient (CLI) | payer OTHER ==
[~2019-11-23] MED LIST changes: +IOHEXOL 350 MG/ML 100ML INFUS..BTL IV ONE
== END | disposition home or self-care (01) ==
LOC: RAH 08:02
PROVIDERS: ATTEND Internal Medicine
DX: K44.9 Diaphragmatic hernia without obstruction or gangrene (principal); R10.31 Right lower quadrant pain; Z90.710 Acquired absence of both cervix and uterus
CPT/HCPCS: 74177; Q9967

== ENCOUNTER → 2019-12-01 | Outpatient (CLI) | payer OTHER ==
[~2019-12-01] MED LIST changes: -IOHEXOL 350 MG/ML 100ML INFUS..BTL IV ONE
== END | disposition home or self-care (01) ==
LOC: RAH 08:43
PROVIDERS: ATTEND Internal Medicine
DX: R19.00 Intra-abdominal and pelvic swelling, mass and lump, unspecified site (principal); Z90.710 Acquired absence of both cervix and uterus
CPT/HCPCS: 76856

== ENCOUNTER 2020-03-16 16:26 | Emergency (ER) | payer OTHER ==
[~2020-03-16 16:26] MED LIST changes: +AMLO-142 PO; -AMLO-97 PO; +MONT-39 PO; -MONT10TA26 PO
[2020-03-16 18:00] LABS: BASOPHILS % (AUTO) 0.2 % (0.0-5.0); EOSINOPHILS % (AUTO) 2.1 % (0.0-8.0); HEMATOCRIT 42.2 % (36-48); LYMPHOCYTES % (AUTO) 12.8 % (21.0-51.0); MEAN CORPUSCULAR HEMOGLOBIN 29.8 pg (27.0-33.0); MEAN CORPUSCULAR HGB CONC 32.5 g/dL (32.0-36.0); MEAN CORPUSCULAR VOLUME 91.9 fL (79-99); MONOCYTES % (AUTO) 7.2 % (3.0-13.0); NEUTROPHILS % (AUTO) 77.5 % (40.0-77.0); PLATELET COUNT (AUTO) 254 K/uL (130-400); RED BLOOD CELL COUNT(AUTO) 4.59 MIL/uL (4.00-5.50); RED CELL DISTRIBUTION WIDTH 12.1 % (11.0-15.5); WHITE BLOOD COUNT (AUTO) 8.8 K/uL (4.8-10.8)
[2020-03-16 18:21] LABS: PROTHROMBIN TIME 10.7 SEC (9.6-11.6)
[2020-03-16 18:22] LABS: PARTIAL THROMBOPLASTIN TIME 29.2 SEC (26.3-35.5)
[2020-03-16 18:23] LABS: POTASSIUM 3.6 mmol/L (3.5-5.1)
[2020-03-16 18:27] LABS: ALBUMIN 3.7 g/dL (3.5-5.0); BILIRUBIN,TOTAL 0.2 mg/dL (0.2-1.0); TOTAL PROTEIN, SERUM 7.9 g/dL (6.0-8.3)
== END 2020-03-16 18:57 | disposition home or self-care (01) ==
LOC: EDH 16:26
DX: R00.0 Tachycardia, unspecified (principal); E66.9 Obesity, unspecified; Z20.828 Contact with and (suspected) exposure to other viral communicable diseases; I10 Essential (primary) hypertension; Z88.8 Allergy status to other drugs, medicaments and biological substances; Z68.36 Body mass index [BMI] 36.0-36.9, adult
CPT/HCPCS: 36415; 71045; 80053; 82550; 84484; 85025; 85610; 85730; 87426; 87804 ×2; 87880; 93005; 99285; U0003

== ENCOUNTER → 2020-07-05 | Outpatient (CLI) | payer OTHER ==
[~2020-07-05] MED LIST changes: -AMLO-142 PO; +AMLO-97 PO; -MONT-39 PO; +MONT10TA32 PO
[2020-07-05 09:48] LABS: CREATININE 0.8 mg/dL (0.5-1.5); MAGNESIUM 2.1 mg/dL (1.80-2.40)
== END | disposition home or self-care (01) ==
LOC: RAH 08:41
PROVIDERS: ATTEND Internal Medicine Cardiovascular Disease
DX: R00.2 Palpitations (principal)
CPT/HCPCS: 36415; 80048; 83735; 93306; 93356

== ENCOUNTER 2020-07-13 10:59 | Emergency (ER) | payer OTHER ==
[2020-07-13] MEDS ORDERED: HYDROCODONE/ACETAMINOPHEN 5/325 MG TAB ONE (13:06)
[2020-07-13] MEDS ORDERED: KETOROLAC TROMETHAMINE 30MG/ML ONE (13:06)
[2020-07-13 13:27] LABS: APPEARANCE,URINE Cloudy (CLEAR); BILIRUBIN,URINE Negative (NEGATIVE); COLOR,URINE Yellow (YELLOW); GLUCOSE, URINE (UA) Negative (NEGATIVE); KETONES,URINE Negative (NEGATIVE); LEUKOCYTE ESTERASE ,URINE Small (NEGATIVE); NITRATE,URINE Negative (NEGATIVE); OCCULT BLOOD,URINE Negative (NEGATIVE); PROTEIN,URINE Negative (NEGATIVE)
[2020-07-13 13:45] LABS: RBC,URINE 0-1 /HPF (0-1)
[2020-07-13 13:46] LABS: BACTERIA,URINE Few /HPF (None Seen); SQUAMOUS EPITHELIAL CELL,UR Few /HPF (0-2)
== END 2020-07-13 17:36 | disposition home or self-care (01) ==
LOC: EDH 10:59
DX: S39.012A Strain of muscle, fascia and tendon of lower back, initial encounter (principal); I10 Essential (primary) hypertension; E11.9 Type 2 diabetes mellitus without complications; J45.909 Unspecified asthma, uncomplicated; Z90.710 Acquired absence of both cervix and uterus; Z88.8 Allergy status to other drugs, medicaments and biological substances; X50.9XXA Other and unspecified overexertion or strenuous movements or postures, initial encounter; Y93.89 Activity, other specified; Y92.89 Other specified places as the place of occurrence of the external cause; Y99.8 Other external cause status
CPT/HCPCS: 72100; 81001; 96372; 99284; J1885

== ENCOUNTER → 2020-09-12 | Outpatient (CLI) | payer OTHER ==
[2020-09-12 10:07] LABS: BASOPHILS % (AUTO) 0.4 % (0.0-5.0); EOSINOPHILS % (AUTO) 2.2 % (0.0-8.0); HEMATOCRIT 44.6 % (36-48); LYMPHOCYTES % (AUTO) 16.6 % (21.0-51.0); MEAN CORPUSCULAR HEMOGLOBIN 29.9 pg (27.0-33.0); MEAN CORPUSCULAR HGB CONC 32.1 g/dL (32.0-36.0); MEAN CORPUSCULAR VOLUME 93.1 fL (79-99); NEUTROPHILS % (AUTO) 73.1 % (40.0-77.0); PLATELET COUNT (AUTO) 279 K/uL (130-400); RED BLOOD CELL COUNT(AUTO) 4.79 MIL/uL (4.00-5.50); RED CELL DISTRIBUTION WIDTH 12.8 % (11.0-15.5); WHITE BLOOD COUNT (AUTO) 7.7 K/uL (4.8-10.8)
[2020-09-12 10:26] LABS: HEMOGLOBIN A1C 6.2 % (4.0-6.0)
[2020-09-12 10:33] LABS: ALBUMIN 3.8 g/dL (3.5-5.0); BILIRUBIN,TOTAL 0.3 mg/dL (0.2-1.0); CREATININE 0.8 mg/dL (0.5-1.5); POTASSIUM 3.7 mmol/L (3.5-5.1); THYROID STIMULATING HORMONE 2.67 uIU/mL (0.36-3.74); TOTAL PROTEIN, SERUM 8.3 g/dL (6.0-8.3)
== END | disposition home or self-care (01) ==
LOC: LAB 09:14
PROVIDERS: ATTEND Internal Medicine
DX: I10 Essential (primary) hypertension (principal); E78.2 Mixed hyperlipidemia; E03.9 Hypothyroidism, unspecified; E88.81 Metabolic syndrome and other insulin resistance
CPT/HCPCS: 36415; 80053; 80061; 82043; 83036; 84443; 85025

== ENCOUNTER 2020-11-23 02:51 | Emergency (ER) | payer OTHER ==
[~2020-11-23] VITALS: Ht 149.9 cm; Wt 85.3 kg
[2020-11-23 02:56] VITALS: BP 156/104
[2020-11-23 03:40] LABS: BASOPHILS % (AUTO) 0.4 % (0.0-5.0); HEMATOCRIT 42.7 % (36-48); LYMPHOCYTES % (AUTO) 14.8 % (21.0-51.0); MEAN CORPUSCULAR HEMOGLOBIN 29.4 pg (27.0-33.0); MEAN CORPUSCULAR HGB CONC 32.3 g/dL (32.0-36.0); NEUTROPHILS % (AUTO) 73.4 % (40.0-77.0); PLATELET COUNT (AUTO) 244 K/uL (130-400); RED BLOOD CELL COUNT(AUTO) 4.69 MIL/uL (4.00-5.50); RED CELL DISTRIBUTION WIDTH 12.5 % (11.0-15.5); WHITE BLOOD COUNT (AUTO) 9.2 K/uL (4.8-10.8)
[2020-11-23 03:45] LABS: POTASSIUM 3.9 mmol/L (3.5-5.1)
[2020-11-23 03:47] LABS: PROTHROMBIN TIME 10.9 SEC (9.6-11.6)
[2020-11-23 03:48] LABS: PARTIAL THROMBOPLASTIN TIME 30.5 SEC (26.3-35.5)
[2020-11-23 03:50] LABS: ALBUMIN 3.6 g/dL (3.5-5.0); BILIRUBIN,TOTAL 0.2 mg/dL (0.2-1.0); TOTAL PROTEIN, SERUM 7.9 g/dL (6.0-8.3)
[2020-11-23 03:58] VITALS: BP 135/91
[2020-11-23] MEDS ORDERED: 0.9%NACL 1000ML 1,000 ML IV ONE ×2 (04:08→04:30)
[2020-11-23] MEDS ORDERED: KETOROLAC 30MG VIAL (30MG/ML) ONE (04:08)
[2020-11-23] MEDS ORDERED: KETOROLAC 30MG VIAL (30MG/ML) IV ONE (04:30)
[2020-11-23] MEDS ORDERED: IOHEXOL 350 MG/ML 100ML INFUS..BTL IV ONE (04:47)
[2020-11-23 05:17] LABS: BILIRUBIN,URINE Negative (NEGATIVE); COLOR,URINE Yellow (YELLOW); GLUCOSE, URINE (UA) Negative (NEGATIVE); KETONES,URINE Negative (NEGATIVE); LEUKOCYTE ESTERASE ,URINE Negative (NEGATIVE); NITRATE,URINE Negative (NEGATIVE); OCCULT BLOOD,URINE Negative (NEGATIVE); PH,URINE 5.5 (5.0-8.0); PROTEIN,URINE Negative (NEGATIVE)
[2020-11-23 05:21] LABS: APPEARANCE,URINE CLEAR (CLEAR)
[2020-11-23] MEDS ORDERED: CIPR-278 PO (06:13)
[2020-11-23] MEDS ORDERED: METR500T PO (06:13)
[2020-11-23] MEDS ORDERED: DICY20TA2 PO (06:13)
[2020-11-23] MEDS ORDERED: LEVOFLOXACIN 500 MG TABLET PO ONE (06:30)
[2020-11-23] MEDS ORDERED: METRONIDAZOLE 500 MG TABLET PO ONE (06:30)
[2020-11-23 06:36] VITALS: BP 129/85
== END 2020-11-23 06:45 | disposition home or self-care (01) ==
LOC: EDH 02:51
DX: K52.9 Noninfective gastroenteritis and colitis, unspecified (principal); E86.9 Volume depletion, unspecified; I10 Essential (primary) hypertension; Z79.1 Long term (current) use of non-steroidal anti-inflammatories (NSAID); Z79.51 Long term (current) use of inhaled steroids; Z79.899 Other long term (current) drug therapy; Z90.710 Acquired absence of both cervix and uterus
CPT/HCPCS: 36415; 74177; 80053; 81003; 83690; 85025; 85610; 85730; 96361; 96374; 99285; J1885; J7030; Q9967

== ENCOUNTER → 2020-12-25 | Outpatient (CLI) | payer OTHER ==
[~2020-12-25] MED LIST changes: +CIPR-278 PO; +DICY20TA2 PO; +METR500T PO
== END | disposition home or self-care (01) ==
LOC: RAH 08:09
PROVIDERS: ATTEND Internal Medicine
DX: Z12.31 Encounter for screening mammogram for malignant neoplasm of breast (principal)
CPT/HCPCS: 77067

== ENCOUNTER 2021-01-25 05:50 | Emergency (ER) | payer OTHER ==
[~2021-01-25] VITALS: Ht 149.9 cm; Wt 84.4 kg
[~2021-01-25 05:50] MED LIST changes: +AMLO-142 PO; -AMLO-97 PO; +MONT-39 PO; -MONT10TA32 PO
[2021-01-25] MEDS ORDERED: LIDOCAINE HCL 2% VISCOUS 15 ML UDCUP PO ONE (06:00)
[2021-01-25] MEDS ORDERED: MAG/ALUM/SIMETH 30 ML UDCUP PO ONE (06:00)
[2021-01-25] MEDS ORDERED: IPRATROPIUM/ALBUTEROL SULFATE 3 ML SOLUTION IH ONE (06:23)
[2021-01-25] MEDS ORDERED: ALBUTEROL 0.083% 2.5 MG/3 ML INH IH ONE ×6 (06:24→06:30)
[2021-01-25] MEDS ORDERED: AZITHROMYCIN 250 MG TABLET PO ONE ×2 (06:30→07:47)
[2021-01-25] MEDS ORDERED: PREDNISONE 20 MG TABLET PO ONE (06:30)
[2021-01-25] MEDS ORDERED: AZIT250T9 PO (07:37)
[2021-01-25] MEDS ORDERED: PRED20TA3 PO (07:37)
[2021-01-25] MEDS ORDERED: LIDO20SO MM (07:37)
[2021-01-25] MEDS ORDERED: ALBU8.5H8 IH (07:37)
[2021-01-25] MEDS ORDERED: MAG/ALUM/SIMETH 30 ML UDCUP ONE (07:46)
[2021-01-25] MEDS ORDERED: LIDOCAINE HCL 2% VISCOUS 15 ML UDCUP ONE (07:46)
[2021-01-25] MEDS ORDERED: PREDNISONE 20 MG TABLET ONE (07:47)
[2021-01-25] MEDS ORDERED: DiphenhydrAMINE HCL 50 MG/ML VIAL IM ONE (08:00)
[2021-01-25 08:17] VITALS: BP 162/93
== END 2021-01-25 08:55 | disposition home or self-care (01) ==
LOC: EDH 05:50
DX: J45.901 Unspecified asthma with (acute) exacerbation (principal); Z20.822 Contact with and (suspected) exposure to COVID-19; I10 Essential (primary) hypertension; Z79.51 Long term (current) use of inhaled steroids; Z79.52 Long term (current) use of systemic steroids; Z79.899 Other long term (current) drug therapy
CPT/HCPCS: 71045; 87635; 94640 ×3; 96372; 99285; C9803; J1200

== ENCOUNTER → 2021-04-23 | Outpatient (CLI) | payer OTHER ==
[~2021-04-23] MED LIST changes: +ALBU8.5H8 IH; +AZIT250T9 PO; +LIDO20SO MM; +PRED20TA3 PO
== END | disposition home or self-care (01) ==
LOC: LAB 14:26
PROVIDERS: ATTEND Internal Medicine
DX: U07.1 COVID-19 (principal)
CPT/HCPCS: 87635; C9803

== ENCOUNTER → 2021-06-12 | Outpatient (CLI) | payer OTHER ==
[2021-06-12 09:50] LABS: BASOPHILS % (AUTO) 0.2 % (0.0-5.0); EOSINOPHILS % (AUTO) 1.9 % (0.0-8.0); HEMATOCRIT 41.6 % (36-48); MEAN CORPUSCULAR HEMOGLOBIN 29.1 pg (27.0-33.0); MEAN CORPUSCULAR HGB CONC 31.7 g/dL (32.0-36.0); MEAN CORPUSCULAR VOLUME 91.6 fL (79-99); MONOCYTES % (AUTO) 6.3 % (3.0-13.0); NEUTROPHILS % (AUTO) 77.1 % (40.0-77.0); PLATELET COUNT (AUTO) 215 K/uL (130-400); RED BLOOD CELL COUNT(AUTO) 4.54 MIL/uL (4.00-5.50); RED CELL DISTRIBUTION WIDTH 13.1 % (11.0-15.5); WHITE BLOOD COUNT (AUTO) 9.1 K/uL (4.8-10.8)
[2021-06-12 09:59] LABS: HEMOGLOBIN A1C 7.4 % (4.0-6.0)
[2021-06-12 10:11] LABS: ALBUMIN 3.5 g/dL (3.5-5.0); BILIRUBIN,TOTAL 0.4 mg/dL (0.2-1.0); CREATININE 0.7 mg/dL (0.5-1.5); POTASSIUM 4.1 mmol/L (3.5-5.1); THYROID STIMULATING HORMONE 1.55 uIU/mL (0.36-3.74); TOTAL PROTEIN, SERUM 7.4 g/dL (6.0-8.3)
== END | disposition home or self-care (01) ==
LOC: LAB 09:09
PROVIDERS: ATTEND Internal Medicine
DX: E11.65 Type 2 diabetes mellitus with hyperglycemia (principal); E03.9 Hypothyroidism, unspecified; E78.2 Mixed hyperlipidemia; E88.81 Metabolic syndrome and other insulin resistance; I10 Essential (primary) hypertension; J45.30 Mild persistent asthma, uncomplicated
CPT/HCPCS: 36415; 80053; 80061; 82043; 83036; 84443; 85025

== ENCOUNTER → 2021-12-26 | Outpatient (CLI) | payer OTHER | END | disposition home or self-care (01) | LOC: RAH 10:45 | PROVIDERS: ATTEND Internal Medicine | DX: Z12.31 Encounter for screening mammogram for malignant neoplasm of breast (principal) | CPT/HCPCS: 77067 ==

== ENCOUNTER 2022-08-29 11:56 | Emergency (ER) | payer OTHER ==
[~2022-08-29] VITALS: Ht 149.9 cm; Wt 83.0 kg
[2022-08-29] MEDS ORDERED: NIFEDIPINE 10 MG CAP PO ONE (12:30)
[2022-08-29] MEDS ORDERED: ASPIRIN 81MG CHEW TAB PO ONE (12:30)
[2022-08-29 12:33] LABS: BASOPHILS % (AUTO) 0.2 % (0.0-5.0); EOSINOPHILS % (AUTO) 2.1 % (0.0-8.0); HEMATOCRIT 43.3 % (36-48); LYMPHOCYTES % (AUTO) 14.4 % (21.0-51.0); MEAN CORPUSCULAR HEMOGLOBIN 29.2 pg (27.0-33.0); MEAN CORPUSCULAR HGB CONC 32.6 g/dL (32.0-36.0); MEAN CORPUSCULAR VOLUME 89.6 fL (79-99); MONOCYTES % (AUTO) 6.3 % (3.0-13.0); NEUTROPHILS % (AUTO) 76.6 % (40.0-77.0); PLATELET COUNT (AUTO) 223 K/uL (130-400); RED BLOOD CELL COUNT(AUTO) 4.83 MIL/uL (4.00-5.50); RED CELL DISTRIBUTION WIDTH 12.2 % (11.0-15.5)
[2022-08-29 12:41] LABS: INR 0.94 (0.85-1.15); PROTHROMBIN TIME 10.3 SEC (9.6-11.6)
[2022-08-29 12:46] LABS: ALBUMIN 3.7 g/dL (3.5-5.0); CREATININE 0.7 mg/dL (0.5-1.5); POTASSIUM 3.3 mmol/L (3.5-5.1); TOTAL PROTEIN, SERUM 7.6 g/dL (6.0-8.3)
[2022-08-29 13:06] LABS: B-TYPE NATRIURETIC PEPTIDE 34 pg/mL (0-100)
[2022-08-29 14:21] LABS: APPEARANCE,URINE CLOUDY (CLEAR); BILIRUBIN,URINE NEGATIVE (NEGATIVE); COLOR,URINE LIGHT-YELLOW (YELLOW); GLUCOSE, URINE (UA) NEGATIVE (NEGATIVE); KETONES,URINE NEGATIVE (NEGATIVE); LEUKOCYTE ESTERASE ,URINE NEGATIVE Leu/uL (NEGATIVE); NITRATE,URINE NEGATIVE (NEGATIVE); OCCULT BLOOD,URINE NEGATIVE (NEGATIVE); PROTEIN,URINE NEGATIVE (NEGATIVE); UROBILINOGEN,URINE 0.2 mg/dL (0.2-1.0)
[2022-08-29 14:28] LABS: BACTERIA,URINE FEW /HPF (None Seen); OTHER CASTS, URINE 1 /LPF (None Seen); RBC,URINE 0-1 /HPF (0-1); SQUAMOUS EPITHELIAL CELL,UR MOD /HPF (0-2)
[2022-08-29 14:49] VITALS: BP 147/71
== END 2022-08-29 15:38 | disposition home or self-care (01) ==
LOC: EDH 11:56
DX: I16.0 Hypertensive urgency (principal); I49.3 Ventricular premature depolarization; J45.909 Unspecified asthma, uncomplicated; Z79.899 Other long term (current) drug therapy; Z90.710 Acquired absence of both cervix and uterus; Z98.890 Other specified postprocedural states
CPT/HCPCS: 36415; 71045; 80053; 81001; 83880; 84484; 85025; 85610; 93005

== ENCOUNTER → 2022-10-04 | Outpatient (CLI) | payer OTHER ==
[2022-10-04 16:23] LABS: CREATININE 0.9 mg/dL (0.5-1.5); POTASSIUM 3.4 mmol/L (3.5-5.1)
== END | disposition home or self-care (01) ==
LOC: LAB 15:30
PROVIDERS: ATTEND Internal Medicine Cardiovascular Disease
DX: I20.9 Angina pectoris, unspecified (principal); R94.31 Abnormal electrocardiogram [ECG] [EKG]
CPT/HCPCS: 36415; 80048

== ENCOUNTER → 2022-10-17 | Outpatient (CLI) | payer OTHER ==
[~2022-10-17] MED LIST changes: +IOHEXOL 350 MG/ML 100ML INFUS..BTL IV ONE
== END | disposition home or self-care (01) ==
LOC: RAH 09:30
PROVIDERS: ATTEND Internal Medicine Cardiovascular Disease
DX: I70.1 Atherosclerosis of renal artery (principal)
CPT/HCPCS: 74175; Q9967 ×2

== ENCOUNTER → 2022-11-12 | Outpatient (CLI) | payer OTHER ==
[~2022-11-12] MED LIST changes: -IOHEXOL 350 MG/ML 100ML INFUS..BTL IV ONE; +REGADENOSON 0.4 MG/5 ML PF SYG IVP SCH
== END | disposition home or self-care (01) ==
LOC: RAH 08:39
PROVIDERS: ATTEND Internal Medicine Cardiovascular Disease
DX: I20.9 Angina pectoris, unspecified (principal); R07.9 Chest pain, unspecified; I10 Essential (primary) hypertension; E78.5 Hyperlipidemia, unspecified
CPT/HCPCS: 78452; 96374; 93017; J2785; A9500 ×2

== ENCOUNTER → 2022-12-10 | Outpatient (CLI) | payer OTHER ==
[~2022-12-10] MED LIST changes: -REGADENOSON 0.4 MG/5 ML PF SYG IVP SCH
[2022-12-10 11:08] LABS: CREATININE 0.8 mg/dL (0.5-1.5); POTASSIUM 4.2 mmol/L (3.5-5.1)
== END | disposition home or self-care (01) ==
LOC: RAH 10:02
PROVIDERS: ATTEND Internal Medicine Cardiovascular Disease
DX: I10 Essential (primary) hypertension (principal); E26.9 Hyperaldosteronism, unspecified; I70.1 Atherosclerosis of renal artery
CPT/HCPCS: 36415; 80048

== ENCOUNTER → 2023-01-20 | Outpatient (CLI) | payer OTHER ==
[2023-01-20 10:49] LABS: ALBUMIN 3.6 g/dL (3.5-5.0); BILIRUBIN,TOTAL 0.4 mg/dL (0.2-1.0); CREATININE 0.8 mg/dL (0.5-1.5); POTASSIUM 3.9 mmol/L (3.5-5.1); TOTAL PROTEIN, SERUM 7.6 g/dL (6.0-8.3)
== END | disposition home or self-care (01) ==
LOC: LAB 09:47
PROVIDERS: ATTEND Internal Medicine
DX: I12.9 Hypertensive chronic kidney disease with stage 1 through stage 4 chronic kidney disease, or unspecified chronic kidney disease (principal); E78.2 Mixed hyperlipidemia
CPT/HCPCS: 36415; 80053; 80061; 82043; 82570

== ENCOUNTER → 2023-02-10 | Outpatient (CLI) | payer OTHER ==
[2023-02-10 09:49] LABS: CREATININE 0.7 mg/dL (0.5-1.5); POTASSIUM 3.7 mmol/L (3.5-5.1)
== END | disposition home or self-care (01) ==
LOC: LAB 09:10
PROVIDERS: ATTEND Internal Medicine Cardiovascular Disease
DX: I10 Essential (primary) hypertension (principal)
CPT/HCPCS: 36415; 80048

== ENCOUNTER → 2023-08-08 | Outpatient (CLI) | payer OTHER ==
[2023-08-08 10:45] LABS: BASOPHILS # (AUTO) 0.03 K/uL (0.00-0.20); BASOPHILS % (AUTO) 0.3 % (0.0-5.0); EOSINOPHILS % (AUTO) 2.1 % (0.0-8.0); HEMATOCRIT 43.1 % (36-48); IMMATURE GRANULOCYTE ABSOLUTE 0.05 K/uL (0-1); LYMPHOCYTES # (AUTO) 1.4 K/uL (1.0-4.8); LYMPHOCYTES % (AUTO) 14.2 % (21.0-51.0); MEAN CORPUSCULAR HEMOGLOBIN 29.8 pg (27.0-33.0); MEAN CORPUSCULAR HGB CONC 32.5 g/dL (32.0-36.0); MEAN CORPUSCULAR VOLUME 91.7 fL (79-99); MONOCYTES # (AUTO) 0.6 K/uL (0.1-1.0); MONOCYTES % (AUTO) 6.4 % (3.0-13.0); NEUTROPHILS # (AUTO) 7.4 K/uL (1.8-7.7); NEUTROPHILS % (AUTO) 76.5 % (40.0-77.0); PLATELET COUNT (AUTO) 242 K/uL (130-400); RED CELL DISTRIBUTION WIDTH 12.4 % (11.0-15.5); WHITE BLOOD COUNT (AUTO) 9.7 K/uL (4.8-10.8)
[2023-08-08 10:55] LABS: ALBUMIN 3.7 g/dL (3.5-5.0); BILIRUBIN,TOTAL 0.5 mg/dL (0.2-1.0); CREATININE 0.8 mg/dL (0.5-1.0); POTASSIUM 3.8 mmol/L (3.5-5.1); TOTAL PROTEIN, SERUM 7.6 g/dL (6.0-8.3)
[2023-08-08 11:04] LABS: HEMOGLOBIN A1C 6.4 % (4.0-6.0)
== END | disposition home or self-care (01) ==
LOC: LAB 10:04
PROVIDERS: ATTEND Internal Medicine
DX: E11.22 Type 2 diabetes mellitus with diabetic chronic kidney disease (principal); N18.9 Chronic kidney disease, unspecified; M15.9 Polyosteoarthritis, unspecified; E11.65 Type 2 diabetes mellitus with hyperglycemia; E78.2 Mixed hyperlipidemia
CPT/HCPCS: 36415; 80053; 80061; 82043; 82570; 83036; 85025

== ENCOUNTER 2023-08-23 10:19 | Emergency (ER) | payer OTHER ==
[~2023-08-23] VITALS: Ht 149.9 cm; Wt 86.2 kg
[2023-08-23] MEDS: IPRATROPIUM/ALBUTEROL SULFATE 3 ML SOLUTION IH ONE (10:55)
[2023-08-23 10:57] VITALS: PULSE 97; RESP 20
[2023-08-23] MEDS: DEXAMETHASONE SOD PHOSPHATE 4 MG/ML 1ML VIAL IM ONE (10:58)
[2023-08-23] MEDS: GUAIFENESIN-CODEINE 5 ML SYRUP PO ONE (10:59)
[2023-08-23 11:26] LABS: INFLUENZA TYPE A Negative For Type A (NEGATIVE); INFLUENZA TYPE B Negative For Type B (NEGATIVE)
[2023-08-23 12:06] LABS: SARS-CoV-2, RNA, NAAT NEGATIVE SARS CoV-2 (NEGATIVE)
[2023-08-23] MEDS ORDERED: BENZ-39 PO (12:20)
[2023-08-23 12:40] VITALS: BP 151/96; PULSE 94; RESP 20; O2SAT 98
[2023-08-23 12:47] LABS: BILIRUBIN,URINE NEGATIVE (NEGATIVE); COLOR,URINE LIGHT-ORANGE (YELLOW); GLUCOSE, URINE (UA) NEGATIVE (NEGATIVE); KETONES,URINE NEGATIVE (NEGATIVE); LEUKOCYTE ESTERASE ,URINE NEGATIVE Leu/uL (NEGATIVE); NITRATE,URINE NEGATIVE (NEGATIVE); OCCULT BLOOD,URINE NEGATIVE (NEGATIVE); PH,URINE 5.5 (5.0-8.0); PROTEIN,URINE NEGATIVE (NEGATIVE); UROBILINOGEN,URINE 0.2 mg/dL (0.2-1.0)
[2023-08-23 12:52] LABS: ADD UA MICROSCOPIC YES; APPEARANCE,URINE TURBID (CLEAR)
[2023-08-23 13:03] LABS: BACTERIA,URINE FEW /HPF (None Seen); MUCUS,URINE RARE LPF (None Seen); SQUAMOUS EPITHELIAL CELL,UR MANY /HPF (0-2)
== END 2023-08-23 12:42 | disposition home or self-care (01) ==
LOC: EDH 10:19
DX: J40 Bronchitis, not specified as acute or chronic (principal); R05.9 Cough, unspecified; I10 Essential (primary) hypertension; E11.9 Type 2 diabetes mellitus without complications; Z88.8 Allergy status to other drugs, medicaments and biological substances; Z20.822 Contact with and (suspected) exposure to COVID-19
CPT/HCPCS: 99284; 71046; 87635; 87880; 87804 ×2; 81001; 96372; 94640; J1100

== ENCOUNTER → 2023-08-28 | Outpatient (CLI) | payer OTHER ==
[~2023-08-28] MED LIST changes: +BENZ-39 PO
[2023-08-28 12:34] LABS: POTASSIUM 3.8 mmol/L (3.5-5.1)
== END | disposition home or self-care (01) ==
LOC: LAB 11:28
PROVIDERS: ATTEND Internal Medicine Cardiovascular Disease
DX: I10 Essential (primary) hypertension (principal); I70.1 Atherosclerosis of renal artery; E26.9 Hyperaldosteronism, unspecified
CPT/HCPCS: 36415; 80048

== ENCOUNTER → 2023-09-01 | Outpatient (CLI) | payer OTHER | END | disposition home or self-care (01) | LOC: RAH 15:00 | PROVIDERS: ATTEND Internal Medicine | DX: Z12.31 Encounter for screening mammogram for malignant neoplasm of breast (principal) | CPT/HCPCS: 77067 ==

== ENCOUNTER → 2023-12-07 | Outpatient (CLI) | payer OTHER ==
[~2023-12-07] MED LIST changes: -NEBI10TA PO; +NEBI10TA10 PO
[2023-12-07 21:56] VITALS: PULSE 84; RESP 16
[2023-12-07 22:30] VITALS: PULSE 70; RESP 16
[2023-12-07 23:00] VITALS: PULSE 66; RESP 16
[2023-12-07 23:30] VITALS: PULSE 68; RESP 16
[2023-12-08] VITALS (9 sets, daily range): PULSE 62–74; RESP 12–18
== END | disposition home or self-care (01) ==
LOC: SLP 20:26
PROVIDERS: ATTEND Internal Medicine Cardiovascular Disease
DX: G47.33 Obstructive sleep apnea (adult) (pediatric) (principal); I10 Essential (primary) hypertension; E11.9 Type 2 diabetes mellitus without complications
CPT/HCPCS: 95810

== ENCOUNTER → 2024-01-06 | Outpatient (CLI) | payer OTHER | END | disposition home or self-care (01) | LOC: RAH 14:06 | PROVIDERS: ATTEND Internal Medicine | DX: M79.604 Pain in right leg (principal); I73.9 Peripheral vascular disease, unspecified | CPT/HCPCS: 93926; 93971 ==

== ENCOUNTER → 2024-02-27 | Outpatient (CLI) | payer OTHER ==
[~2024-02-27] MED LIST changes: +PRED10TA23 PO
[2024-02-27 10:26] LABS: HEMOGLOBIN A1C 6.8 % (4.0-6.0)
[2024-02-27 10:27] LABS: ALBUMIN 3.6 g/dL (3.5-5.0); BILIRUBIN,TOTAL 0.2 mg/dL (0.2-1.0); CREATININE 0.9 mg/dL (0.5-1.0); POTASSIUM 3.9 mmol/L (3.5-5.1); TOTAL PROTEIN, SERUM 7.3 g/dL (6.0-8.3)
== END | disposition home or self-care (01) ==
LOC: LAB 09:32
PROVIDERS: ATTEND Internal Medicine
DX: E11.628 Type 2 diabetes mellitus with other skin complications (principal); N18.2 Chronic kidney disease, stage 2 (mild); E78.2 Mixed hyperlipidemia
CPT/HCPCS: 36415; 80053; 80061; 83036

== ENCOUNTER → 2024-03-03 | Outpatient (CLI) | payer OTHER | END | disposition home or self-care (01) | LOC: LAB 09:03 | PROVIDERS: ATTEND Internal Medicine | DX: Z13.29 Encounter for screening for other suspected endocrine disorder (principal) | CPT/HCPCS: 36415; 84443 ==

== ENCOUNTER 2024-03-18 15:23 | Emergency (ER) | payer OTHER ==
[~2024-03-18] VITALS: Ht 149.9 cm; Wt 87.1 kg
[2024-03-18 15:51] LABS: RAPID GROUP A STREP negative (NEGATIVE)
[2024-03-18 16:01] LABS: COVID19 (SARS ANTIGEN RAPID) PRESUMPTIVE NEGATIVE (NEGATIVE); INFLUENZA TYPE A Negative For Type A (NEGATIVE); INFLUENZA TYPE B Negative For Type B (NEGATIVE)
--- NOTE | 2024-03-18 16:08 | NUR ---
PT ASSIGNED TO MY ED BED 11 BUT NOT IN THERE YET
--- NOTE | 2024-03-18 16:18 | NUR ---
PT JUST NOW PLACED IN MY ED BED 11
[2024-03-18] MEDS: ibuPROFEN 600 MG TABLET PO ONE (16:33)
[2024-03-18] MEDS: 0.9%NACL 1000ML 1,000 ML IV ONE ×2 (17:08→19:27)
--- NOTE | 2024-03-18 17:21 | NUR ---
PT WAS ASSISTED OOB TO BR TO VOID VIA W/C BY BA KRUEGER
[2024-03-18 17:32] LABS: BASOPHILS # (AUTO) 0.03 K/uL (0.00-0.20); BASOPHILS % (AUTO) 0.3 % (0.0-5.0); EOSINOPHILS # (AUTO) 0.21 K/uL (0.00-0.70); EOSINOPHILS % (AUTO) 1.8 % (0.0-8.0); HEMATOCRIT 44.3 % (36-48); IMMATURE GRANULOCYTE ABSOLUTE 0.04 K/uL (0-1); LYMPHOCYTES # (AUTO) 0.8 K/uL (1.0-4.8); LYMPHOCYTES % (AUTO) 6.9 % (21.0-51.0); MEAN CORPUSCULAR HEMOGLOBIN 28.7 pg (27.0-33.0); MEAN CORPUSCULAR HGB CONC 32.3 g/dL (32.0-36.0); MONOCYTES # (AUTO) 0.7 K/uL (0.1-1.0); MONOCYTES % (AUTO) 5.5 % (3.0-13.0); NEUTROPHILS # (AUTO) 10.1 K/uL (1.8-7.7); NEUTROPHILS % (AUTO) 85.2 % (40.0-77.0); PLATELET COUNT (AUTO) 209 K/uL (130-400); RED BLOOD CELL COUNT(AUTO) 4.98 MIL/uL (4.00-5.50); RED CELL DISTRIBUTION WIDTH 12.4 % (11.0-15.5); WHITE BLOOD COUNT (AUTO) 11.8 K/uL (4.8-10.8)
[2024-03-18 17:49] LABS: CREATININE 0.8 mg/dL (0.5-1.0); POTASSIUM 3.9 mmol/L (3.5-5.1)
--- NOTE | 2024-03-18 18:03 | ERN ---
General Chief Complaint: Flu Symptoms Stated Complaint: FLU LIKE SYMPTOMS,SOB,WEAKNESS Time Seen by MD: 15:24 Source: patient History of Present Illness Initial Comments Patient is a 44-year-old female coming in to be evaluated for generalized body weakness and URI. Per patient these symptoms have been ongoing for three days. Patient also has nasal congestion sore throat. Allergies: Coded Allergies: hydrochlorothiazide (Unverified Allergy, Unknown, 04/27/17) Home Meds Active Scripts Prednisone (Prednisone) 10 Mg Tab.ds.pk, 40 MG PO DAILY for 5 Days, #5 TAB Prov:CAROL HBOBS MD 01/28/24 Benzonatate (Tessalon Perles) 100 Mg Cap, 100 MG PO q8 PRN for cough, #15 CAP 0 Refills Prov:SADE SARKAR NP 08/23/23 Prednisone (Prednisone) 20 Mg Tablet, 40 MG PO DAILY for 4 Days, #8 TAB 0 Refills Prov:GUMARO AGUILAR MD 01/25/21 Lidocaine HCl (Lidocaine HCl Viscous) 20 Mg/1 Ml Solution, 10 MG MM Q4HPRN, #200 ML 0 Refills Prov:GUMARO AGUILAR MD 01/25/21 Azithromycin (Azithromycin) 250 Mg Tablet, 250 MG PO DAILY for 4 Days, #4 TAB 0 Refills Prov:GUMARO AGUILAR MD 01/25/21 Albuterol Sulfate (Proair Hfa) 8.5 Gm Hfa.aer.ad, 2 PUFF IH Q4HPRN, #1 INHALER 0 Refills Prov:GUMARO AGUILAR MD 01/25/21 Dicyclomine HCl (Bentyl) 20 Mg Tab, 20 MG PO Q6HPRN, #20 TAB 0 Refills Prov:GUMARO AGUILAR MD 11/23/20 Ciprofloxacin HCl (Cipro) 500 Mg Tablet, 1 TAB PO BID for 10 Days, #20 TAB 0 Refills Prov:GUMARO AGUILAR MD 11/23/20 Metronidazole (Flagyl) 500 Mg Tablet, 1 TAB PO TID for 10 Days, #30 TAB 0 Refills Prov:GUMARO AGUILAR MD 11/23/20 Reported Medications Montelukast Sodium (Montelukast Sodium) 10 Mg Tablet, 10 MG PO DAILY, TAB 02/05/19 Fluticasone Furoate (Flonase Sensimist) 5.9 Ml [place].susp, 2 SPRAY NS DAILY 02/05/19 Pantoprazole Sodium (Protonix) 40 Mg Tablet.dr, 40 MG PO DAILY, TAB 02/05/19 Loratadine (Loratadine) 10 Mg Tablet, 10 MG PO HS, TAB 02/05/19 Nebivolol HCl (Bystolic) 10 Mg Tablet, 10 MG PO HS, TAB 02/05/19 Amlodipine Besylate/Benazepril (Amlodipine-Benazepril 10-40 mg) 1 Each Capsule, 1 EACH PO DAILY, CAP 02/05/19 Fluticasone/Vilanterol (Breo Ellipta 200-25 Mcg INH) 1 Each Blst.w.dev, 1 EACH IH DAILY 02/05/19 Past Medical History Past Medical History: Diabetes-Type II, Hypertension Medical History Other: FIBROIDS Past Surgical History: Surgical History Other: HYSTERECTOMY Social History Social History: Negative, Lives with family, Other Female( History) History: Not Applicable ROS Dictation CONSTITUTIONAL: No chills, fever, weakness, no diaphoresis, no malaise. HEAD/FACE: No signs of trauma. EENT: No eye pain, no blurred vision, no tearing, no double vision, no ear pain, no ear discharge, no nose pain, no nasal congestion, no throat pain, no throat swelling, no mouth pain. RESPIRATORY: No cough, no orthopnea, no SOB, no stridor, no wheezing. CARDIOVASCULAR: No chest pain, no edema, no palpitations, no syncope. GASTROINTESTINAL/ABDOMINAL: No abdominal pain, no constipation, no diarrhea, no nausea, no vomiting. GENITOURINARY: No abnormal discharge, no dysuria, no frequent urination, no hematuria. No complaints of pain in the genitals. MUSCULOSKELETAL: No back pain, no gout, no joint pain, no joint swelling, no muscle pain, no muscle stiffness, no neck pain. INTEGUMENTARY: No change in color, no change in hair/nails, no dryness, no lesion, no lumps, no rash. NEUROLOGICAL/PSYCH: No anxiety, not depressed, no emotional problem, no headache, no numbness, no pre-existing deficit, no history of seizures, no mariza mors, no weakness. HEMATOLOGIC/LYMPHATIC: Not anemic, no history of blood clots, no apparent bleeding, no bruising, glands not swollen. All Systems Negative, Except as Noted. Physical Exam Physical Exam Dictation VITAL SIGNS: Reviewed. GENERAL APPEARANCE: Alert, oriented x3, no acute distress, obese. HEAD AND FACE: Non-traumatic. EYES: PERRL, pink conjunctivas, eyelid no trauma, anterior chamber clear. EARS: Pinnas intact and no signs of trauma or erythema. Ear canals clear and no discharge. TMs erythema. NOSE: No discharge, no bleeding. OROPHARYNX: Mouth normal, teeth no caries, tongue pink. Pharynx erythema. Tonsils no exudates, no abscesses noted. Mucous membrane moist. NECK: Supple, non-tender, no thyromegaly, no masses, no JVD, no bruits. BREAST: Deferred. CHEST: No tenderness, no crepitus, no paradoxical movement, no retractions. LUNGS: Clear, well-ventilated, symmetric, no rales, no wheezing, no rhonchi, no stridor, good breath sounds bilaterally. HEART: Regular rate, regular rhythm, no murmur, no gallops. VASCULAR: No peripheral edema. ABDOMEN: Soft, positive bowel sounds, nondistended, no guarding, nontender, no rebound, no masses no hepatomegaly, no splenomegaly, no Hill's sign, no hernias. RECTAL: Deferred. GENITAL: Deferred. NEUROLOGICAL: Normal speech, gross motor function intact, gross sensory function intact. MUSCULOSKELETAL: Neck nontender, full range of motion, back nontender, full range of motion. EXTREMITIES: Nontender, full range of motion. SKIN: Color pink, dry, no turgor, no rash, no lacerations, no abrasions, no contusions. LYMPHATICS: Deferred. Results Laboratory and Microbiology Lab and Micro Result Laboratory Tests Test 03/18/24 15:36 03/18/24 17:05 Influenza Type A Antigen Negative For Type A Influenza Type B Antigen Negative For Type B SARS-CoV-2 Antigen (Rapid) PRESUMPTIVE NEGATIVE Group A Streptococcus Rapid negative (NEGATIVE) White Blood Count 11.8 K/uL (4.8-10.8) H Red Blood Count 4.98 MIL/uL (4.00-5.50) Hemoglobin 14.3 g/dL (12.0-16.0) Hematocrit 44.3 % (36-48) Mean Corpuscular Volume 89.0 fL (79-99) Mean Corpuscular Hemoglobin 28.7 pg (27.0-33.0) Mean Corpuscular Hemoglobin Concent 32.3 g/dL (32.0-36.0) Red Cell Distribution Width 12.4 % (11.0-15.5) Platelet Count 209 K/uL (130-400) Mean Platelet Volume 10.7 fL (7.5-10.5) H Immature Granulocyte % (Auto) 0.3 % (0-1) Neutrophils (%) (Auto) 85.2 % (40.0-77.0) H Lymphocytes (%) (Auto) 6.9 % (21.0-51.0) L Monocytes (%) (Auto) 5.5 % (3.0-13.0) Eosinophils (%) (Auto) 1.8 % (0.0-8.0) Basophils (%) (Auto) 0.3 % (0.0-5.0) Neutrophils # (Auto) 10.1 K/uL (1.8-7.7) H Lymphocytes # (Auto) 0.8 K/uL (1.0-4.8) L Monocytes # (Auto) 0.7 K/uL (0.1-1.0) Eosinophils # (Auto) 0.21 K/uL (0.00-0.70) Basophils # (Auto) 0.03 K/uL (0.00-0.20) Absolute Immature Granulocyte (auto 0.04 K/uL (0-1) Nucleated Red Blood Cells 0.0 % (0.0-0.19) White Cell Morphology Comment See comments Sodium Level 138 mmol/L (136-145) Potassium Level 3.9 mmol/L (3.5-5.1) Chloride Level 102 mmol/L (101-111) Carbon Dioxide Level 29 mmol/L (21-32) Blood Urea Nitrogen 12 mg/dL (7-18) Creatinine 0.8 mg/dL (0.5-1.0) Glomerular Filtration Rate Calc 93 mL/min (>90) Random Glucose 122 mg/dL (70-105) H Total Calcium 9.4 mg/dL (8.5-10.1) Labs Reviewed?: Yes MDM MDM: Differential diagnosis: URI, COVID, flu, UTI Patient is a 44-year-old female coming in to be evaluated for URI symptoms. Per patient's symptoms have been ongoing for three days. Laboratory workup negative for acute findings. Patient will discharged with oral antibiotics symptoms are mild admitted by the cell count. Patient will be discharged in stable condition with a diagnosis of URI. ED Course Orders Procedure Category Date Status Time Covid19 (Sars Antigen LAB 03/18/24 Complete Rapid) 15:33 Influenza Type A & B, LAB 03/18/24 Complete Rapid 15:33 Rapid (Group A Strep) LAB 03/18/24 Complete 15:33 Ibuprofen 600 Mg PHA 03/18/24 Complete Tablet (Motrin) 16:30 Cbc With Differential LAB 03/18/24 Complete 16:53 Basic Metabolic Panel LAB 03/18/24 Complete 16:53 0.9%Nacl 1000ml (Ns PHA 03/18/24 Complete 1000ml) 17:00 Dexamethasone 4mg/Ml PHA 03/18/24 Complete 1ml Vial (Dexametha 18:00 Ceftriaxone 1g Vial PHA 03/18/24 Complete (Rocephine 1g Inj) 18:00 Current Medications Medications (Trade) Dose Ordered Sig/Vitaly Route PRN Reason Start Time Stop Time Status Last Admin Dose Admin Ceftriaxone Sodium (ROCEphine 1G INJ) 1 gm ONCE ONCE IVPB 03/18/24 18:00 03/18/24 18:01 DC Dexamethasone Sodium Phosphate (dexaMETHasone 4MG/ML 1ML VIAL) 4 mg ONCE ONCE IM 03/18/24 18:00 03/18/24 18:01 DC Ibuprofen (moTRIN) 600 mg ONCE ONCE PO 03/18/24 16:30 03/18/24 16:31 DC 03/18/24 16:33 Sodium Chloride 1,000 ml @ 0 mls/hr ONCE ONCE IV 03/18/24 17:00 03/18/24 17:01 DC 03/18/24 17:08 Vital Signs Date Time Temp Pulse Resp B/P (MAP) Pulse Ox O2 Delivery O2 Flow Rate FiO2 03/18/24 15:35 102.0 114 20 216/135 98 Room Air 0 DX & DISP Disposition: Discharge Departure Impression: Primary Impression: Sinusitis chronic, frontal Condition: Stable Scripts Fluticasone Propionate (Flonase Nasal [place]) 50 Mcg/Actuation [place] 2 SPRAY NS DAILY, #16 GM 0 Refills Prov: TEENA,EFREN MD 03/18/24 Cephalexin Monohydrate (Keflex) 500 Mg Cap 1 CAP PO TID for 10 Days, #30 CAP 0 Refills Prov: EFREN DICKINSON MD 03/18/24 Additional Instructions: FOLLOW-UP WITH PRIMARY CARE PROVIDER IN 1 TO 2 DAYS. TAKE MEDICATIONS DIRECTED HERE IN THE EMERGENCY ROOM. OKAY TO CONTINUE HOME MEDICATIONS UNLESS OTHERWISE DISCUSSED DURING YOUR VISIT IN THE EMERGENCY ROOM TODAY. RETURN TO YOUR NEAREST EMERGENCY ROOM IF SYMPTOMS WORSEN OR IF THERE IS NO IMPROVEMENT. CALL 911 IF YOU NEED IMMEDIATE ASSISTANCE. TAKE TYLENOL [id number] NEEDED AND IF NO CONTRAINDICATIONS ARE PRESENT. INCREASE ORAL HYDRATION. A WOUND CULTURE OR URINE CULTURE WAS ORDERED HERE IN THE EMERGENCY ROOM DEPARTMENT PLEASE FOLLOW-UP WITH PRIMARY CARE PROVIDER AND ADVISE THEM TO GET REPEAT PORTS FROM OUR FACILITY. IF YOU HAD ANY JACQUELINE WRAP/SPLINTS THAT WERE APPLIED HERE, PLEASE DO NOT REMOVE THEM UNTIL YOU SEE YOUR PRIMARY CARE OR SPECIALTY. Referrals: Referrals: ANDREY STOUT MD (PCP) Time of Disposition: 18:05 EFREN DICKINSON MD Mar 18, 2024 18:03
[2024-03-18] MEDS ORDERED: CEPH500B PO (18:05)
[2024-03-18] MEDS ORDERED: FLUT16H NS (18:05)
[2024-03-18] MEDS: nifeDIPine 10 MG CAP ONE (18:28)
[2024-03-18] MEDS: dexaMETHasone SOD PHOSPHATE 4 MG/ML 1ML VIAL IM ONE (18:28)
[2024-03-18] MEDS: cefTRIAXone 1G VIAL IVPB ONE (18:28)
--- NOTE | 2024-03-18 19:00 | NUR ---
DR DICKINSON INFORMED OF PT C/O "CHEST TIGHTNESS"
--- NOTE | 2024-03-18 19:13 | NUR ---
REPORT ENDORSED TO SOM ACOSTA
--- NOTE | 2024-03-18 19:23 | NUR ---
PER PT, SHE DID NOT TAKE HER HOME BP MEDS THIS MORNING LIKE SHE NORMALLY DOES
[2024-03-18] MEDS: dilTIAZem 120MG SR CAP PO SCH (20:02)
[2024-03-18 20:33] VITALS: BP 152/65; PULSE 105; RESP 18; TEMP 98.8; O2SAT 98
--- NOTE | 2024-03-19 06:07 | EKG ---
[facility] Test Date: 2024-03-18 Test Time: 19:34:52 Pat Name: AFSHAN GALLRADO Department: ED Room: Gender: F Cage Operator: [id number] : 1980 Requested By: EFREN DICKINSON Order Number: [id number] Reading MD: Josh Wilkes Measurements Intervals [place] Rate: 113 P: 57 [place]: 156 QRS: -29 QRSD: 90 T: 71 QT: 349 QTc: 478 Interpretive Statements Sinus tachycardia Probable left ventricular hypertrophy Compared to ECG 08/29/2022 12:10:36 Sinus rhythm no longer present Ventricular premature complex(es) no longer present Atrial abnormality no longer present Early repolarization no longer present Electronically Signed On 03-19-2024 14:08:57 GLOBAL PROGRAM DIRECTOR by Josh Wilkes Please click the below link to view image of tracing.
--- NOTE | 2024-03-19 07:29 | EKG ---
[facility] Test Date: 2024-03-18 Test Time: 15:43:45 Pat Name: AFSHAN GALLARDO Department: ED Room: Gender: F Customer Sales Advisor: [id number] : 1980 Requested By: CIRO MIXON Order Number: [id number] Reading MD: Josh Wilkes Measurements Intervals [place] Rate: 111 P: 59 AR: 165 QRS: -30 QRSD: 89 T: 55 QT: 341 QTc: 462 Interpretive Statements Sinus tachycardia Probable left ventricular hypertrophy Compared to ECG 08/29/2022 12:10:36 Sinus rhythm no longer present Ventricular premature complex(es) no longer present Atrial abnormality no longer present Early repolarization no longer present Electronically Signed On 03-19-2024 14:08:32 LEVER MILLER by Josh Wilkes Please click the below link to view image of tracing.
== END 2024-03-18 20:10 | disposition home or self-care (01) ==
LOC: EDH 15:23
DX: J32.1 Chronic frontal sinusitis (principal); E11.9 Type 2 diabetes mellitus without complications; I10 Essential (primary) hypertension; Z20.822 Contact with and (suspected) exposure to COVID-19; Z79.51 Long term (current) use of inhaled steroids; Z79.52 Long term (current) use of systemic steroids; Z79.899 Other long term (current) drug therapy; Z90.710 Acquired absence of both cervix and uterus
CPT/HCPCS: 99284; 96374; 96361; 87426; 84484; 80048; 85025; 87880; 87804 ×2; 36415; 93005 ×2; 96372; J1100; J7030 ×2; J0696

== ENCOUNTER → 2024-06-11 | Outpatient (CLI) | payer OTHER ==
[~2024-06-11] MED LIST changes: +CEPH500B PO; +FLUT16H NS
[2024-06-11 09:33] LABS: BASOPHILS # (AUTO) 0.03 K/uL (0.00-0.20); BASOPHILS % (AUTO) 0.4 % (0.0-5.0); EOSINOPHILS % (AUTO) 2.9 % (0.0-8.0); HEMATOCRIT 41.3 % (36-48); IMMATURE GRANULOCYTE ABSOLUTE 0.03 K/uL (0-1); LYMPHOCYTES # (AUTO) 1.4 K/uL (1.0-4.8); LYMPHOCYTES % (AUTO) 19.5 % (21.0-51.0); MEAN CORPUSCULAR HEMOGLOBIN 29.4 pg (27.0-33.0); MEAN CORPUSCULAR HGB CONC 32.2 g/dL (32.0-36.0); MEAN CORPUSCULAR VOLUME 91.4 fL (79-99); MONOCYTES # (AUTO) 0.5 K/uL (0.1-1.0); MONOCYTES % (AUTO) 7.7 % (3.0-13.0); NEUTROPHILS # (AUTO) 4.8 K/uL (1.8-7.7); NEUTROPHILS % (AUTO) 69.1 % (40.0-77.0); PLATELET COUNT (AUTO) 233 K/uL (130-400); RED BLOOD CELL COUNT(AUTO) 4.52 MIL/uL (4.00-5.50); RED CELL DISTRIBUTION WIDTH 12.7 % (11.0-15.5)
[2024-06-11 09:44] LABS: APPEARANCE,URINE CLOUDY (CLEAR); BILIRUBIN,URINE NEGATIVE (NEGATIVE); COLOR,URINE LIGHT-YELLOW (YELLOW); GLUCOSE, URINE (UA) NEGATIVE (NEGATIVE); KETONES,URINE NEGATIVE (NEGATIVE); LEUKOCYTE ESTERASE ,URINE NEGATIVE Leu/uL (NEGATIVE); NITRATE,URINE NEGATIVE (NEGATIVE); OCCULT BLOOD,URINE NEGATIVE (NEGATIVE); PH,URINE 5.5 (5.0-8.0); PROTEIN,URINE NEGATIVE (NEGATIVE); UROBILINOGEN,URINE 0.2 mg/dL (0.2-1.0)
[2024-06-11 09:50] LABS: ADD UA MICROSCOPIC YES
[2024-06-11 09:52] LABS: HEMOGLOBIN A1C 6.4 % (4.0-6.0)
[2024-06-11 09:55] LABS: ALBUMIN 3.6 g/dL (3.5-5.0); BILIRUBIN,TOTAL 0.3 mg/dL (0.2-1.0); CREATININE 0.9 mg/dL (0.5-1.0); POTASSIUM 3.6 mmol/L (3.5-5.1); THYROID STIMULATING HORMONE 1.69 uIU/mL (0.36-3.74); TOTAL PROTEIN, SERUM 7.3 g/dL (6.0-8.3)
[2024-06-11 10:10] LABS: BACTERIA,URINE RARE /HPF (None Seen); MUCUS,URINE RARE LPF (None Seen); RBC,URINE 0-1 /HPF (0-1); SQUAMOUS EPITHELIAL CELL,UR MANY /HPF (0-2)
== END | disposition home or self-care (01) ==
LOC: LAB 09:07
PROVIDERS: ATTEND Internal Medicine
DX: I12.9 Hypertensive chronic kidney disease with stage 1 through stage 4 chronic kidney disease, or unspecified chronic kidney disease (principal); N18.2 Chronic kidney disease, stage 2 (mild); E11.65 Type 2 diabetes mellitus with hyperglycemia; E78.2 Mixed hyperlipidemia; F41.1 Generalized anxiety disorder; E11.22 Type 2 diabetes mellitus with diabetic chronic kidney disease
CPT/HCPCS: 36415; 80053; 80061; 81001; 82043; 82570; 83036; 84443; 85025

== ENCOUNTER → 2024-08-30 | Outpatient (CLI) | payer OTHER ==
[2024-08-30 08:38] LABS: BASOPHILS # (AUTO) 0.03 K/uL (0.00-0.20); BASOPHILS % (AUTO) 0.4 % (0.0-5.0); EOSINOPHILS # (AUTO) 0.21 K/uL (0.00-0.70); EOSINOPHILS % (AUTO) 3.1 % (0.0-8.0); HEMATOCRIT 46.1 % (36-48); IMMATURE GRANULOCYTE ABSOLUTE 0.02 K/uL (0-1); LYMPHOCYTES # (AUTO) 1.5 K/uL (1.0-4.8); LYMPHOCYTES % (AUTO) 22.3 % (21.0-51.0); MEAN CORPUSCULAR HEMOGLOBIN 28.8 pg (27.0-33.0); MEAN CORPUSCULAR HGB CONC 31.2 g/dL (32.0-36.0); MEAN CORPUSCULAR VOLUME 92.2 fL (79-99); MONOCYTES # (AUTO) 0.5 K/uL (0.1-1.0); MONOCYTES % (AUTO) 7.2 % (3.0-13.0); NEUTROPHILS # (AUTO) 4.5 K/uL (1.8-7.7); NEUTROPHILS % (AUTO) 66.7 % (40.0-77.0); PLATELET COUNT (AUTO) 239 K/uL (130-400); RED CELL DISTRIBUTION WIDTH 12.3 % (11.0-15.5); WHITE BLOOD COUNT (AUTO) 6.8 K/uL (4.8-10.8)
[2024-08-30 09:07] LABS: ALBUMIN 3.6 g/dL (3.5-5.0); BILIRUBIN,TOTAL 0.4 mg/dL (0.2-1.0); CREATININE 0.8 mg/dL (0.5-1.0); POTASSIUM 3.7 mmol/L (3.5-5.1); THYROID STIMULATING HORMONE 2.37 uIU/mL (0.36-3.74); TOTAL PROTEIN, SERUM 7.6 g/dL (6.0-8.3)
[2024-08-30 09:10] LABS: HEMOGLOBIN A1C 7.1 % (4.0-6.0)
== END | disposition home or self-care (01) ==
LOC: LAB 08:03
PROVIDERS: ATTEND Internal Medicine
DX: E11.22 Type 2 diabetes mellitus with diabetic chronic kidney disease (principal); E11.65 Type 2 diabetes mellitus with hyperglycemia; N18.2 Chronic kidney disease, stage 2 (mild); E78.2 Mixed hyperlipidemia; Z13.29 Encounter for screening for other suspected endocrine disorder
CPT/HCPCS: 36415; 80053; 80061; 82043; 82570; 83036; 84443; 85025

== ENCOUNTER → 2024-10-26 | Outpatient (CLI) | payer OTHER ==
[2024-10-26 10:43] LABS: CREATININE 0.9 mg/dL (0.5-1.0); GLOMERULAR FILTR. RATE CALC 81.0 mL/min (>90); GLUCOSE,RANDOM 143.0 mg/dL (70-105); SODIUM SERUM 137.0 mmol/L (136-145); UREA NITROGEN, BLOOD 15.0 mg/dL (7-18)
== END | disposition home or self-care (01) ==
LOC: LAB 09:28
PROVIDERS: ATTEND Internal Medicine Cardiovascular Disease
DX: I10 Essential (primary) hypertension (principal); E66.01 Morbid (severe) obesity due to excess calories; G47.33 Obstructive sleep apnea (adult) (pediatric)
CPT/HCPCS: 36415; 80048

== ENCOUNTER → 2024-12-29 | Outpatient (CLI) | payer OTHER ==
[~2024-12-29] MED LIST changes: +KETO10TA2 PO
== END | disposition home or self-care (01) ==
LOC: RAH 08:39
PROVIDERS: ATTEND Internal Medicine
DX: Z12.31 Encounter for screening mammogram for malignant neoplasm of breast (principal)
CPT/HCPCS: 77067

== ENCOUNTER 2024-12-31 17:42 | Emergency (ER) | payer OTHER ==
[~2024-12-31] VITALS: Ht 149.9 cm; Wt 85.7 kg
[~2024-12-31 17:42] MED LIST changes: -KETO10TA2 PO
--- NOTE | 2024-12-31 18:51 | ERN ---
General Chief Complaint: Shoulder Injury/Pain Stated Complaint: RT SHOULDER PAIN AND INJURY Time Seen by MD: 17:45 Time Seen by Midlevel: 17:45 Source: patient History of Present Illness Initial Comments Patient is a pleasant 44-year-old female presenting to the emergency department with a right shoulder pain. 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 She was transferring/holding up outpatient when she injured her right shoulder. Patient now has painful range of motion. Allergies: Coded Allergies: hydrochlorothiazide (Unverified Allergy, Unknown, 04/27/17) Home Meds Active Scripts Fluticasone Propionate (Flonase Nasal [place]) 50 Mcg/Actuation [place], 2 SPRAY NS DAILY, #16 GM 0 Refills Prov:EFREN DICKINSON MD 03/18/24 Cephalexin Monohydrate (Keflex) 500 Mg Cap, 1 CAP PO TID for 10 Days, #30 CAP 0 Refills Prov:EFREN DICKINSON MD 03/18/24 Prednisone (Prednisone) 10 Mg Tab.ds.pk, 40 MG PO DAILY for 5 Days, #5 TAB Prov:CAROL HOBBS MD 01/28/24 Benzonatate (Tessalon Perles) 100 Mg Cap, 100 MG PO q8 PRN for cough, #15 CAP 0 Refills Prov:SADE SARKAR TAX CREDIT LEASING CONSULTANT 08/23/23 Prednisone (Prednisone) 20 Mg Tablet, 40 MG PO DAILY for 4 Days, #8 TAB 0 Refills Prov:GUMARO AGUILAR MD 01/25/21 Lidocaine HCl (Lidocaine HCl Viscous) 20 Mg/1 Ml Solution, 10 MG MM Q4HPRN, #200 ML 0 Refills Prov:GUMARO AGUILAR MD 01/25/21 Azithromycin (Azithromycin) 250 Mg Tablet, 250 MG PO DAILY for 4 Days, #4 TAB 0 Refills Prov:GUMARO AGUILAR MD 01/25/21 Albuterol Sulfate (Proair Hfa) 8.5 Gm Hfa.aer.ad, 2 PUFF IH Q4HPRN, #1 INHALER 0 Refills Prov:GUMARO AGUILAR MD 01/25/21 Dicyclomine HCl (Bentyl) 20 Mg Tab, 20 MG PO Q6HPRN, #20 TAB 0 Refills Prov:GUMARO AGUILAR MD 11/23/20 Ciprofloxacin HCl (Cipro) 500 Mg Tablet, 1 TAB PO BID for 10 Days, #20 TAB 0 Refills Prov:GUMARO AGUILAR MD 11/23/20 Metronidazole (Flagyl) 500 Mg Tablet, 1 TAB PO TID for 10 Days, #30 TAB 0 R efills Prov:GUMARO AGUILAR MD 11/23/20 Reported Medications Montelukast Sodium (Montelukast Sodium) 10 Mg Tablet, 10 MG PO DAILY, TAB 02/05/19 Fluticasone Furoate (Flonase Sensimist) 5.9 Ml [place].susp, 2 SPRAY NS DAILY 02/05/19 Pantoprazole Sodium (Protonix) 40 Mg Tablet.dr, 40 MG PO DAILY, TAB 02/05/19 Loratadine (Loratadine) 10 Mg Tablet, 10 MG PO HS, TAB 02/05/19 Nebivolol HCl (Bystolic) 10 Mg Tablet, 10 MG PO HS, TAB 02/05/19 Amlodipine Besylate/Benazepril (Amlodipine-Benazepril 10-40 mg) 1 Each Capsule, 1 EACH PO DAILY, CAP 02/05/19 Fluticasone/Vilanterol (Breo Ellipta 200-25 Mcg INH) 1 Each Blst.w.dev, 1 EACH IH DAILY 02/05/19 Past Medical History Past Medical History: Asthma, COPD, Diabetes-Type II, Hypertension Medical History Other: FIBROIDS Past Surgical History: Surgical History Other: HYSTERECTOMY Social History Social History: Negative, Lives with family, Other Female( History) History: Not Applicable ROS Dictation CONSTITUTIONAL: Negative except for HPI HEAD/FACE: Negative except for HPI EENT: Negative except for HPI RESPIRATORY: Negative except for HPI GASTROINTESTINAL/ABDOMINAL: Negative except for HPI GENITOURINARY: Negative except for HPI MUSCULOSKELETAL: Negative except for HPI INTEGUMENTARY: Negative except for HPI NEUROLOGICAL/PSYCH: Negative except for HPI HEMATOLOGIC/LYMPHATIC: Negative except for HPI All Systems Negative, Except as noted above. 13 point review of systems assessed and all negative except for above. Physical Exam Physical Exam Dictation Vital Signs reviewed General Appearance: Alert, oriented x 3, no acute distress, well developed, nourished. Head and Face: non-traumatic. Eyes: PERRL, pink conjunctivas, eyelid no trauma, anterior chamber with arcus senilis. Ears: Pinnas intact and no signs of trauma or erythema ear canals clear and no discharge TM no erythema Nose: No discharge, no bleeding. Oropharynx: Mouth normal, tongue pink, pharynx clear,no erythema, tonsils no exudates, no abscesses noted, mucous membrane moist Neck: Supple, non-tender, no thyromegaly, no masses, no JVD, no bruits Breast:Deferred Chest:No tenderness, no crepitus, no paradoxical movement, no retractions Lungs:Clear, well-ventilated, symmetric, no rales, no wheezing, no rhonchi, no stridor, good breath sounds bilaterally Heart: Regular rate, regular rhythm, no murmur, no gallops Vascular: no peripheral edema, Abdomen: Soft, positive bowel sounds, nondistended, no guarding, nontender, no rebound, no masses no hepatomegaly, no splenomegaly, no Hill's sign, no hernias. Rectal: Deferred Genital: Deferred Neurological: Normal speech, motor function intact, sensory function intact Musculoskeletal: Neck nontender, full range of motion, back nontender, full range of motion, Extremities: Restricted range motion to the right shoulder secondary to pain, no obvious signs of external trauma Skin: Color pink, dry, no turgor, no rash, no lacerations, no abrasions, no contusions. Lymphatic: Deferred MDM MDM: Differential diagnosis: Fracture, contusion, dislocation There are no social concerns with this patient. Prescription drug management Prescriptions will include: None Medical management and examination interpretation discussions were had by me with other qualified healthcare professionals as indicated for the patient's care. ED Course Orders Procedure Category Date Status Time Ketorolac PHA 12/31/24 Complete Tromethamine 30mg/Ml 18:00 Shoulder Comp 2+Vws Rt RAD 12/31/24 Resulted 17:58 Sling STUART 12/31/24 In Process 18:48 Current Medications Medications (Trade) Dose Ordered Sig/Vitaly Route PRN Reason Start Time Stop Time Status Last Admin Dose Admin Ketorolac Tromethamine (toRADol) 30 mg ONCE ONCE IM 12/31/24 18:00 12/31/24 18:01 DC 12/31/24 18:21 Vital Signs Date Time Temp Pulse Resp B/P (MAP) Pulse Ox O2 Delivery O2 Flow Rate FiO2 12/31/24 18:02 98.8 94 12 146/97 99 Room Air* 0 21 12/31/24 17:44 98.6 92 20 185/99 97 Room Air [facility] [address] [place] [address] IMAGING REPORT Signed PATIENT: AFSHAN GALLARDO V MR#: [id number] : 1980 SEX: F AGE: 44 LOCATION: [facility] ORDER 57 STATUS: REG ER REPORT#: [id number] SERVICE 57 REASON: right shoulder injury ORDERING PHYSICIAN: JULIANA HUDDLESTON PAC PROCEDURE: SHOL 2V RT - SHOULDER COMP 2+VWS RT EXAM: CR right Shoulder, 2 View. CLINICAL HISTORY: right shoulder injury COMPARISON: None provided. FINDINGS: BONES: Suggestion for minimal cortical irregularity involving the ureter cortex of the right clavicle laterally. Nondisplaced fracture is not excluded. CT of the right shoulder would be useful for more complete evaluation. JOINTS: No dislocation. The joint spaces are normal. SOFT TISSUES: The soft tissues are unremarkable. IMPRESSION: Cannot exclude a nondisplaced fracture of the lateral aspect of the right clavicle with suggestion of a small inferior cortical irregularity. CT of the right shoulder may be useful for more complete evaluation. /[place] DICTATED BY: TRAVIS STAUFFER Jr., MD DATE: 12/31/242003 ELECTRONICALLY SIGNED BY: TRAVIS STAUFFER Jr., MD DATE: 12/31/242003 DX & DISP Disposition: Discharge Departure Impression: Primary Impression: Closed right clavicular fracture Condition: Stable Scripts Ketorolac Tromethamine (Ketorolac Tromethamine) 10 Mg Tablet 1 TAB PO BID for pain for 5 Days, #10 TAB 0 Refills Prov: JULIANA HUDDLESTON PAC 12/31/24 Additional Instructions: Your shoulder x-ray does not show any evidence of an acute fracture or dislocation.. There is a slight irregularity to the distal end of your clavicle which may represent a nondisplaced fracture. I will go ahead and put you on a sling and have you referred to event specialist Dr. Triana You may take Tylenol and Toradol as needed at home. Follow up with your primary care doctor in 2-3 days for repeat evaluation. Referrals: ANDREY STOUT MD (PCP) I have reviewed the case, and I agree with, Diagnosis and Plan I performed the substantive portion of the visit. I have reviewed and personally made and approve the management plan that is documented in the note by myself or the BEL. I acknowledge for responsibility for the patient's management plan. JULIANA HUDDLESTON PAC Dec 31, 2024 18:51
--- NOTE | 2024-12-31 19:04 | HMCIMG ---
EXAM: CR right Shoulder, 2 View. CLINICAL HISTORY: right shoulder injury COMPARISON: None provided. FINDINGS: BONES: Suggestion for minimal cortical irregularity involving the ureter cortex of the right clavicle laterally. Nondisplaced fracture is not excluded. CT of the right shoulder would be useful for more complete evaluation. JOINTS: No dislocation. The joint spaces are normal. SOFT TISSUES: The soft tissues are unremarkable. IMPRESSION: Cannot exclude a nondisplaced fracture of the lateral aspect of the right clavicle with suggestion of a small inferior cortical irregularity. CT of the right shoulder may be useful for more complete evaluation. /[place]
[2024-12-31 19:38] VITALS: BP 138/74; PULSE 80; RESP 18; TEMP 98.4; O2SAT 98
--- NOTE | 2024-12-31 19:39 | NUR ---
FLAQUITO GÓMEZ AT BEDSIDE.
[2024-12-31] MEDS ORDERED: KETO10TA2 PO (19:49)
[2024-12-31] MEDS: HYDROcodone/APAP 5/325 1 TAB TABLET PO ONE (20:00)
== END 2024-12-31 20:08 | disposition home or self-care (01) ==
LOC: EDH 17:42
DX: S42.034A Nondisplaced fracture of lateral end of right clavicle, initial encounter for closed fracture (principal); E11.9 Type 2 diabetes mellitus without complications; I10 Essential (primary) hypertension; J44.89 Other specified chronic obstructive pulmonary disease; Z79.52 Long term (current) use of systemic steroids; Z79.899 Other long term (current) drug therapy; Z79.51 Long term (current) use of inhaled steroids; Z86.018 Personal history of other benign neoplasm; Z90.710 Acquired absence of both cervix and uterus; Z98.890 Other specified postprocedural states; X50.0XXA Overexertion from strenuous movement or load, initial encounter; Y93.F2 Activity, caregiving, lifting; Y92.238 Other place in hospital as the place of occurrence of the external cause; Y99.0 Civilian activity done for income or pay
CPT/HCPCS: 99283; 73030; 96372; J1885; 29105

== ENCOUNTER → 2025-03-01 | Outpatient (CLI) | payer OTHER ==
[~2025-03-01] MED LIST changes: +KETO10TA2 PO
[2025-03-01 09:59] LABS: ASPARTATE AMINOTRANSFERASE 13.0 U/L (10-37); CREATININE 0.8 mg/dL (0.5-1.0); GLOMERULAR FILTR. RATE CALC 93.0 mL/min (>90); GLUCOSE,RANDOM 141.0 mg/dL (70-105); SODIUM SERUM 140.0 mmol/L (136-145); TOTAL PROTEIN, SERUM 7.4 g/dL (6.0-8.3); UREA NITROGEN, BLOOD 17.0 mg/dL (7-18)
== END | disposition home or self-care (01) ==
LOC: LAB 09:09
PROVIDERS: ATTEND Internal Medicine
DX: E11.65 Type 2 diabetes mellitus with hyperglycemia (principal); E78.2 Mixed hyperlipidemia
CPT/HCPCS: 36415; 80053; 83036